=== PATIENT | female | born 1980 | race Caucasian/White ===

== ENCOUNTER 2019-04-21 10:37 | Emergency (ER) | payer BC, OTHER ==
[2019-04-21 10:44] VITALS: TEMP 98.1
[2019-04-21] MEDS ORDERED: SODIUM CHLORIDE 0.9% 1,000 ML IV STA (11:14)
[2019-04-21] MEDS ORDERED: ONDANSETRON 4 MG/2 ML VIAL IVP STA (11:14)
--- NOTE | 2019-04-21 11:19 | ED ---
Weakness HPI - General Chief complaint: Weakness Stated complaint: WEAKNESS Time Seen by Provider: 04/21/19 10:52 Source: patient, EMS Mode of arrival: EMS Limitations: no limitations - History of Present Illness Initial comments: Patient is a 39-year-old female presenting to the emergency Department with complaints of generalized weakness, nausea since this morning. Patient states this past weekend she did have a couple drinks for her birthday and did end up vomiting later that evening and was not feeling well the next day. Patient states later on on Saturday she was feeling better and most of the day yesterday was feeling better as well. She did finally did eat something for dinner last night. Patient states however she woke up this morning feeling generalized weakness and still nauseous. She denies having pain anywhere including no chest pain, shortness of breath, belly pain. She states she is on her period so is having some lower abdominal cramping. She did take some Motrin which has not helped with the cramping. Patient states her periods have been normal, she does not believe she is . Patient states she has had some abnormal reactions to alcohol in the past even just after 1 drink. Patient admits to cholecystectomy, no other abdominal surgeries. She has no other complaints at this time. Prior arrival to the ER, her vital signs are stable. - Related Data Home Medications Medication Instructions Recorded Confirmed No Known Home Medications 04/21/19 04/21/19 Allergies Allergy/AdvReac Type Severity Reaction Status Date / Time No Known Allergies Allergy Verified 04/21/19 12:19 Review of Systems ROS Statement: Those systems with pertinent positive or pertinent negative responses have been documented in the HPI. ROS Other: All systems not noted in ROS Statement are negative. Past Medical History Past Medical History: No Reported History History of Any Multi-Drug Resistant Organisms: None Reported Past Surgical History: Cholecystectomy Past Psychological History: No Psychological Hx Reported Smoking Status: Current some day smoker Past Alcohol Use History: None Reported, Occasional, Rare Past Drug Use History: Marijuana General Exam - General Exam Comments Initial Comments: GENERAL: Well-appearing, well-nourished and in no acute distress. HEAD: Atraumatic, normocephalic. EYES: Pupils equal round and reactive to light, extraocular movements intact, sclera anicteric, conjunctiva are normal. ENT: TMs normal, nares patent, oropharynx clear without exudates. Moist mucous me mbranes. NECK: Normal range of motion, supple without lymphadenopathy or JVD. LUNGS: Breath sounds clear to auscultation bilaterally and equal. No wheezes rales or rhonchi. HEART: Regular rate and rhythm without murmurs, rubs or gallops. ABDOMEN: Mild lower abdominal/ suprapubic discomfort. No sharp shooting pains. Soft, nontender, normoactive bowel sounds. No guarding, no rebound. No masses appreciated. : Deferred EXTREMITIES: Normal range of motion, no pitting or edema. No clubbing or cyanosis. NEUROLOGICAL: Cranial nerves II through XII grossly intact. Normal speech, normal gait. PSYCH: Normal mood, normal affect. SKIN: Warm, Dry, normal turgor, no rashes or lesions noted. Limitations: no limitations Course Vital Signs 04/21/19 10:38 Temperature 98.1 F Pulse Rate 66 Respiratory 16 Rate Blood Pressure 140/69 O2 Sat by Pulse 100 Oximetry EKG Findings - EKG Comments: EKG Findings:: Ventricular rate 62, CO interval 152, QTC 454. Normal sinus rhythm. No acute ST segment changes. Medical Decision Making - Medical Decision Making Patient is a 39-year-old female presenting with nausea and generalized weakness since this morning. Vitals are stable. Her exam is unremarkable except for some mild suprapubic tenderness however patient is on her period and is having cramping. Lab work is unremarkable, UA is normal, not . EKG shows no acute findings, troponin normal. Patient was given fluids and Zofran and does report some improvement in her symptoms. I discussed with patient that this could be viral in nature or a mild GI bug. We discuss continuing to increase her fluid intake and trial of foods. She is in agreement with this plan of care. She is stable for discharge. Return parameters were discussed with the patient she verbalized understanding. She'll follow up with her PCP. Case dis cussed with Dr. Carvalho. - Lab Data Result diagrams: 04/21/19 10:55 04/21/19 10:55 Lab Results 04/21/19 04/21/19 04/21/19 Range/Units 10:55 10:55 10:55 WBC 5.8 (3.8-10.6) k/uL RBC 4.55 (3.80-5.40) m/uL Hgb 13.7 (11.4-16.0) gm/dL Hct 42.7 (34.0-46.0) % MCV 93.8 (80.0-100.0) fL MCH 30.0 (25.0-35.0) pg MCHC 32.0 (31.0-37.0) g/dL RDW 12.7 (11.5-15.5) % Plt Count 242 (150-450) k/uL Neutrophils % 72 % Lymphocytes % 17 % Monocytes % 6 % Eosinophils % 3 % Basophils % 1 % Neutrophils # 4.2 (1.3-7.7) k/uL Lymphocytes # 1.0 (1.0-4.8) k/uL Monocytes # 0.4 (0-1.0) k/uL Eosinophils # 0.2 (0-0.7) k/uL Basophils # 0.0 (0-0.2) k/uL PT 9.8 (9.0-12.0) sec INR 0.9 (<1.2) APTT 23.9 (22.0-30.0) sec Sodium 139 (137-145) mmol/L Potassium 3.9 (3.5-5.1) mmol/L Chloride 110 H (98-107) mmol/L Carbon Dioxide 21 L (22-30) mmol/L Anion Gap 8 mmol/L BUN 17 (7-17) mg/dL Creatinine 0.79 (0.52-1.04) mg/dL Est GFR (CKD-EPI)AfAm >90 (>60 ml/min/1.73 sqM) Est GFR (CKD-EPI)NonAf >90 (>60 ml/min/1.73 sqM) Glucose 110 H (74-99) mg/dL Calcium 8.5 (8.4-10.2) mg/dL Total Bilirubin 0.3 (0.2-1.3) mg/dL AST 19 (14-36) U/L ALT 12 (4-34) U/L Alkaline Phosphatase 58 (38-126) U/L Troponin I (0.000-0.034) ng/mL Total Protein 6.5 (6.3-8.2) g/dL Albumin 3.8 (3.5-5.0) g/dL Urine Color Urine Appearance (Clear) Urine pH (5.0-8.0) Ur Specific [place] (1.001-1.035) Urine Protein (Negative) Urine Glucose (UA) (Negative) Urine Ketones (Negative) Urine Blood (Negative) Urine Nitrite (Negative) Urine Bilirubin (Negative) Urine Urobilinogen (<2.0) mg/dL Ur Leukocyte Esterase (Negative) Urine RBC (0-5) /hpf Urine WBC (0-5) /hpf Urine Mucus (None) /hpf Urine HCG, Qual (Not Detectd) 04/21/19 04/21/19 04/21/19 Range/Units 10:55 11:30 11:30 WBC (3.8-10.6) k/uL RBC (3.80-5.40) m/uL Hgb (11.4-16.0) gm/dL Hct (34.0-46.0) % MCV (80.0-100.0) fL MCH (25.0-35.0) pg MCHC (31.0-37.0) g/dL RDW (11.5-15.5) % Plt Count (150-450) k/uL Neutrophils % % Lymphocytes % % Monocytes % % Eosinophils % % Basophils % % Neutrophils # (1.3-7.7) k/uL Lymphocytes # (1.0-4.8) k/uL Monocytes # (0-1.0) k/uL Eosinophils # (0-0.7) k/uL Basophils # (0-0.2) k/uL PT (9.0-12.0) sec INR (<1.2) APTT (22.0-30.0) sec Sodium (137-145) mmol/L Potassium (3.5-5.1) mmol/L Chloride (98-107) mmol/L Carbon Dioxide (22-30) mmol/L Anion Gap mmol/L BUN (7-17) mg/dL Creatinine (0.52-1.04) mg/dL Est GFR (CKD-EPI)AfAm (>60 ml/min/1.73 sqM) Est GFR (CKD-EPI)NonAf (>60 ml/min/1.73 sqM) Glucose (74-99) mg/dL Calcium (8.4-10.2) mg/dL Total Bilirubin (0.2-1.3) mg/dL AST (14-36) U/L ALT (4-34) U/L Alkaline Phosphatase (38-126) U/L Troponin I <0.012 (0.000-0.034) ng/mL Total Protein (6.3-8.2) g/dL Albumin (3.5-5.0) g/dL Urine Color Yellow Urine Appearance Clear (Clear) Urine pH 5.5 (5.0-8.0) Ur Specific [place] 1.012 (1.001-1.035) Urine Protein Negative (Negative) Urine Glucose (UA) Negative (Negative) Urine Ketones Negative (Negative) Urine Blood Moderate H (Negative) Urine Nitrite Negative (Negative) Urine Bilirubin Negative (Negative) Urine Urobilinogen <2.0 (<2.0) mg/dL Ur Leukocyte Esterase Negative (Negative) Urine RBC 5 (0-5) /hpf Urine WBC <1 (0-5) /hpf Urine Mucus Rare H (None) /hpf Urine HCG, Qual Not Detected (Not Detectd) Disposition Clinical Impression: Nausea & vomiting, Generalized weakness, Viral illness Disposition: HOME SELF-CARE Condition: Stable Instructions (If sedation given, give patient instructions): Acute Nausea and Vomiting (ED) Additional Instructions: Please return to the Emergency Department if symptoms worsen or any other concerns. Continue to increase oral intake as well as foods. Continue with ibuprofen as needed for discomfort. Follow up with PCP. Is patient prescribed a controlled substance at d/c from ED?: No Referrals: Diana Arteaga MD [Primary Care Provider] - 1-2 days
[2019-04-21 11:26] LABS: Basophils % (A) 1 %; Eosinophils # (A) 0.2 k/uL (0-0.7); Eosinophils % (A) 3 %; HCT 42.7 % (34.0-46.0); HGB 13.7 gm/dL (11.4-16.0); Lymphocytes % (A) 17 %; MCV 93.8 fL (80.0-100.0); Mean Platelet Volume 7.8; Monocytes # (A) 0.4 k/uL (0-1.0); Monocytes % (A) 6 %; Neutrophils # (A) 4.2 k/uL (1.3-7.7); Neutrophils % (A) 72 %; Platelet Count 242 k/uL (150-450); RBC 4.55 m/uL (3.80-5.40); RDW 12.7 % (11.5-15.5); WBC 5.8 k/uL (3.8-10.6)
[2019-04-21 11:38] LABS: ALT 12 U/L (4-34); AST 19 U/L (14-36); African American GFR (CKD) >90 (>60 ml/min/1.73 sqM); Albumin 3.8 g/dL (3.5-5.0); Alkaline Phosphatase 58 U/L (38-126); Anion Gap 8 mmol/L; Blood Urea Nitrogen 17 mg/dL (7-17); Calcium 8.5 mg/dL (8.4-10.2); Carbon Dioxide 21 mmol/L (22-30); Chloride 110 mmol/L (98-107); Glucose 110 mg/dL (74-99); Non-African American GFR(CKD) >90 (>60 ml/min/1.73 sqM); Potassium 3.9 mmol/L (3.5-5.1); Sodium 139 mmol/L (137-145); Total Bilirubin 0.3 mg/dL (0.2-1.3); Total Protein 6.5 g/dL (6.3-8.2)
[2019-04-21 11:46] LABS: INR 0.9 (<1.2); Partial Thromboplastin Time 23.9 sec (22.0-30.0); Prothrombin Time 9.8 sec (9.0-12.0)
[2019-04-21 12:27] LABS: Appearance,Urine Clear (Clear); Bilirubin,Urine Negative (Negative); Blood,Urine Moderate (Negative); Color,Urine Yellow; Glucose,Urine (UA) Negative (Negative); Ketones,Urine Negative (Negative); Leukocyte Esterase,Urine Negative (Negative); Mucus,Urine Rare /hpf; Nitrite,Urine Negative (Negative); PH, Urine 5.5 (5.0-8.0); Protein,Urine Negative (Negative); RBC,Urine 5 /hpf (0-5); Specific Gravity,Urine 1.012 (1.001-1.035); Urobilinogen,Urine <2.0 mg/dL (<2.0); WBC,Urine <1 /hpf (0-5)
[2019-04-21] MEDS ORDERED: ONDANSETRON 4 MG ODT STARTER PACK 2 TAB BTL PO STA (12:40)
[2019-04-21 13:00] VITALS: BP 113/64; PULSE 57; RESP 18
== END 2019-04-21 13:02 | disposition home or self-care (01) ==
LOC: EC 10:37
DX: B34.9 Viral infection, unspecified (principal); F17.200 Nicotine dependence, unspecified, uncomplicated; Z90.49 Acquired absence of other specified parts of digestive tract
CPT/HCPCS: 36415; 93005; 80053; 84484; 85025; 85610; 85730; 81001; 81025; 99285; 96374; 96361; J2405; S0119

== ENCOUNTER 2019-12-27 08:32 | Emergency (ER) | payer OTHER ==
[2019-12-27] MEDS ORDERED: SODIUM CHLORIDE 0.9% 2,000 ML IV STA (08:52)
[2019-12-27] MEDS ORDERED: ONDANSETRON 4 MG/2 ML VIAL IVP STA (08:52)
[2019-12-27] MEDS ORDERED: KETOROLAC 15 MG/ML 1 ML VIAL IVP STA (08:52)
--- NOTE | 2019-12-27 08:55 | ED ---
General Adult HPI - General Chief complaint: Nausea/Vomiting/Diarrhea Stated complaint: Nausea,Vomiting,chills Time Seen by Provider: 12/27/19 08:39 Source: patient, RN notes reviewed Mode of arrival: wheelchair Limitations: no limitations - History of Present Illness Initial comments: 39-year-old female presents to the emergency room for a chief complaint of nausea vomiting diarrhea. Patient states that for the past 3-4 days she has had nausea vomiting diarrhea. States this started after she ate the last bowl out of a batch of potato soup. Patient states she has cramping abdominal pain that comes and goes, denies any persistent abdominal pain. Denies fevers or chills. She denies bloody or bilious vomiting. Denies bloody diarrhea. Patient states she states feels that does not seem to be getting better. Patient does have a history of cholecystectomy.Patient has no other complaints at this time including shortness of breath, chest pain, abdominal pain, headache, or visual changes. - Related Data Previous Rx's Medication Instructions Recorded Ondansetron [Zofran ODT] 4 mg PO Q8HR PRN #15 tab 12/27/19 Allergies Allergy/AdvReac Type Severity Reaction Status Date / Time No Known Allergies Allergy Verified 12/27/19 08:38 Review of Systems ROS Statement: Those systems with pertinent positive or pertinent negative responses have been documented in the HPI. ROS Other: All systems not noted in ROS Statement are negative. Past Medical History Past Medical History: No Reported History History of Any Multi-Drug Resistant Organisms: None Reported Past Surgical History: Cholecystectomy Past Psychological History: No Psychological Hx Reported Smoking Status: Never smoker Past Alcohol Use History: Occasional, Rare Past Drug Use History: Marijuana General Exam Limitations: no limitations General appearance: alert, in no apparent distress Head exam: Present: atraumatic, normocephalic, normal inspection Eye exam: Present: normal appearance, PERRL, EOMI. Absent: scleral icterus, conjunctival injection, periorbital swelling ENT exam: Present: normal exam, mucous membranes moist Neck exam: Present: normal inspection, full ROM. Absent: tenderness, meningismus Respiratory exam: Present: normal lung sounds bilaterally. Absent: respiratory distress, wheezes, rales, rhonchi, stridor Cardiovascular Exam: Present: regular rate, normal rhythm, normal heart sounds. Absent: systolic murmur, diastolic murmur, rubs, gallop, clicks GI/Abdominal exam: Present: soft, normal bowel sounds. Absent: distended, tenderness, guarding, rebound, rigid Neurological exam: Present: alert Course Vital Signs 12/27/19 12/27/19 12/27/19 08:35 09:38 10:00 Temperature 97.6 F Pulse Rate 81 65 Respiratory 16 18 18 Rate Blood Pressure 130/86 120/73 O2 Sat by Pulse 98 100 Oximetry Medical Decision Making - Medical Decision Making Patient is a 39-year-old female with nausea vomiting diarrhea 4 days. HPI and physical exam as documented. Abdomen is nontender. Patient does appear comfortable upon first examination given nausea. Return evaluation was performed. Patient does have evidence of dehydration with hemoconcentration. 3+ ketones in the urine. Patient was given 2 L of fluids. Minimal leukocytosis of 11.6 is likely related to vomiting. She was reevaluated after 2 L of fluids, Toradol, Zofran. She is denying any abdominal pain at this time and states her nausea is much improved. She does not have any abdominal tenderness whatsoever. I discussed risks versus benefits of CAT scan. At this time patient prefers to go home on supportive treatment. She does agree to return if she has any a bdominal pain or or fevers. She will otherwise follow-up with her doctor. I will also give her an outpatient stool culture. - Lab Data Result diagrams: 12/27/19 09:13 12/27/19 09:13 Lab Results 12/27/19 12/27/19 12/27/19 Range/Units 09:13 09:13 09:39 WBC 11.6 H (3.8-10.6) k/uL RBC 5.52 H (3.80-5.40) m/uL Hgb 17.3 H (11.4-16.0) gm/dL Hct 51.7 H (34.0-46.0) % MCV 93.6 (80.0-100.0) fL MCH 31.4 (25.0-35.0) pg MCHC 33.6 (31.0-37.0) g/dL RDW 12.4 (11.5-15.5) % Plt Count 276 (150-450) k/uL Neutrophils % 76 % Lymphocytes % 16 % Monocytes % 5 % Eosinophils % 2 % Basophils % 1 % Neutrophils # 8.8 H (1.3-7.7) k/uL Lymphocytes # 1.8 (1.0-4.8) k/uL Monocytes # 0.6 (0-1.0) k/uL Eosinophils # 0.2 (0-0.7) k/uL Basophils # 0.1 (0-0.2) k/uL Sodium 139 (137-145) mmol/L Potassium 4.5 (3.5-5.1) mmol/L Chloride 108 H (98-107) mmol/L Carbon Dioxide 20 L (22-30) mmol/L Anion Gap 11 mmol/L BUN 15 (7-17) mg/dL Creatinine 0.86 (0.52-1.04) mg/dL Est GFR (CKD-EPI)AfAm >90 (>60 ml/min/1.73 sqM) Est GFR (CKD-EPI)NonAf 85 (>60 ml/min/1.73 sqM) Glucose 100 H (74-99) mg/dL Calcium 9.9 (8.4-10.2) mg/dL Total Bilirubin 1.2 (0.2-1.3) mg/dL AST 25 (14-36) U/L ALT 15 (4-34) U/L Alkaline Phosphatase 61 (38-126) U/L Total Protein 8.4 H (6.3-8.2) g/dL Albumin 5.1 H (3.5-5.0) g/dL Amylase 51 (30-110) U/L Lipase 56 (23-300) U/L Urine Color Yellow Urine Appearance Clear (Clear) Urine pH 5.5 (5.0-8.0) Ur Specific [place] 1.029 (1.001-1.035) Urine Protein Trace H (Negative) Urine Glucose (UA) Negative (Negative) Urine Ketones 3+ H (Negative) Urine Blood Small H (Negative) Urine Nitrite Negative (Negative) Urine Bilirubin Negative (Negative) Urine Urobilinogen <2.0 (<2.0) mg/dL Ur Leukocyte Esterase Negative (Negative) Urine RBC 4 (0-5) /hpf Urine WBC 2 (0-5) /hpf Ur Squamous Epith Cells 5 H (0-4) /hpf Urine Bacteria Rare H (None) /hpf Urine Mucus Many H (None) /hpf Urine HCG, Qual (Not Detectd) 12/27/19 Range/Units 09:39 WBC (3.8-10.6) k/uL RBC (3.80-5.40) m/uL Hgb (11.4-16.0) gm/dL Hct (34.0-46.0) % MCV (80.0-100.0) fL MCH (25.0-35.0) pg MCHC (31.0-37.0) g/dL RDW (11.5-15.5) % Plt Count (150-450) k/uL Neutrophils % % Lymphocytes % % Monocytes % % Eosinophils % % Basophils % % Neutrophils # (1.3-7.7) k/uL Lymphocytes # (1.0-4.8) k/uL Monocytes # (0-1.0) k/uL Eosinophils # (0-0.7) k/uL Basophils # (0-0.2) k/uL Sodium (137-145) mmol/L Potassium (3.5-5.1) mmol/L Chloride (98-107) mmol/L Carbon Dioxide (22-30) mmol/L Anion Gap mmol/L BUN (7-17) mg/dL Creatinine (0.52-1.04) mg/dL Est GFR (CKD-EPI)AfAm (>60 ml/min/1.73 sqM) Est GFR (CKD-EPI)NonAf (>60 ml/min/1.73 sqM) Glucose (74-99) mg/dL Calcium (8.4-10.2) mg/dL Total Bilirubin (0.2-1.3) mg/dL AST (14-36) U/L ALT (4-34) U/L Alkaline Phosphatase (38-126) U/L Total Protein (6.3-8.2) g/dL Albumin (3.5-5.0) g/dL Amylase (30-110) U/L Lipase (23-300) U/L Urine Color Urine Appearance (Clear) Urine pH (5.0-8.0) Ur Specific [place] (1.001-1.035) Urine Protein (Negative) Urine Glucose (UA) (Negative) Urine Ketones (Negative) Urine Blood (Negative) Urine Nitrite (Negative) Urine Bilirubin (Negative) Urine Urobilinogen (<2.0) mg/dL Ur Leukocyte Esterase (Negative) Urine RBC (0-5) /hpf Urine WBC (0-5) /hpf Ur Squamous Epith Cells (0-4) /hpf Urine Bacteria (None) /hpf Urine Mucus (None) /hpf Urine HCG, Qual Not Detected (Not Detectd) Disposition Clinical Impression: Nausea, vomiting and diarrhea Disposition: HOME SELF-CARE Condition: Good Instructions (If sedation given, give patient instructions): Acute Nausea and Vomiting (ED), Acute Diarrhea (ED) Additional Instructions: Please take Zofran as needed for nausea. You were given a starter pack as well as written a prescription. You can take this up to every 8 hours. Drink plenty of fluids. If you have any abdominal pain or fevers return to the emergency room. Otherwise follow-up with your doctor in one to 2 days. Prescriptions: Ondansetron [Zofran ODT] 4 mg PO Q8HR PRN #15 tab PRN Reason: Nausea Is patient prescribed a controlled substance at d/c from ED?: No Referrals: Diana Arteaga MD [Primary Care Provider] - 1-2 days Time of Disposition: 10:34
[2019-12-27 09:14] LABS: Basophils # (A) 0.1 k/uL (0-0.2); Basophils % (A) 1 %; Eosinophils # (A) 0.2 k/uL (0-0.7); Eosinophils % (A) 2 %; HCT 51.7 % (34.0-46.0); HGB 17.3 gm/dL (11.4-16.0); Lymphocytes # (A) 1.8 k/uL (1.0-4.8); Lymphocytes % (A) 16 %; MCH 31.4 pg (25.0-35.0); MCHC 33.6 g/dL (31.0-37.0); MCV 93.6 fL (80.0-100.0); Mean Platelet Volume 7.1; Monocytes # (A) 0.6 k/uL (0-1.0); Monocytes % (A) 5 %; Neutrophils # (A) 8.8 k/uL (1.3-7.7); Neutrophils % (A) 76 %; Platelet Count 276 k/uL (150-450); RBC 5.52 m/uL (3.80-5.40); RDW 12.4 % (11.5-15.5); WBC 11.6 k/uL (3.8-10.6)
[2019-12-27 09:23] LABS: ALT 15 U/L (4-34); AST 25 U/L (14-36); African American GFR (CKD) >90 (>60 ml/min/1.73 sqM); Albumin 5.1 g/dL (3.5-5.0); Alkaline Phosphatase 61 U/L (38-126); Amylase 51 U/L (30-110); Anion Gap 11 mmol/L; Blood Urea Nitrogen 15 mg/dL (7-17); Calcium 9.9 mg/dL (8.4-10.2); Carbon Dioxide 20 mmol/L (22-30); Chloride 108 mmol/L (98-107); Glucose 100 mg/dL (74-99); Non-African American GFR(CKD) 85 (>60 ml/min/1.73 sqM); Potassium 4.5 mmol/L (3.5-5.1); Sodium 139 mmol/L (137-145); Total Bilirubin 1.2 mg/dL (0.2-1.3); Total Protein 8.4 g/dL (6.3-8.2)
[2019-12-27 09:49] LABS: Appearance,Urine Clear (Clear); Bacteria,Urine Rare /hpf; Bilirubin,Urine Negative (Negative); Blood,Urine Small (Negative); Color,Urine Yellow; Glucose,Urine (UA) Negative (Negative); Leukocyte Esterase,Urine Negative (Negative); Mucus,Urine Many /hpf; Nitrite,Urine Negative (Negative); PH, Urine 5.5 (5.0-8.0); Protein,Urine Trace (Negative); RBC,Urine 4 /hpf (0-5); Specific Gravity,Urine 1.029 (1.001-1.035); Squamous Epithelial Cell,Urine 5 /hpf (0-4); Urobilinogen,Urine <2.0 mg/dL (<2.0); WBC,Urine 2 /hpf (0-5)
[2019-12-27 10:11] LABS: Ketones,Urine 3+ (Negative)
[2019-12-27] MEDS ORDERED: ONDANSETRON 4 MG ODT STARTER PACK 2 TAB BTL PO STA (10:35)
[2019-12-27 10:59] VITALS: BP 118/69; PULSE 60; RESP 20; TEMP 97.8
== END 2019-12-27 10:58 | disposition home or self-care (01) ==
LOC: EC 08:32
DX: R11.2 Nausea with vomiting, unspecified (principal); R19.7 Diarrhea, unspecified; Z90.49 Acquired absence of other specified parts of digestive tract
CPT/HCPCS: 36415; 80053; 82150; 83690; 85025; 81001; 81025; 99284; 96374; 96375; 96361 ×2; J2405; J1885; S0119

== ENCOUNTER → 2020-05-19 | Outpatient (CLI) | payer OTHER ==
--- NOTE | 2020-05-20 13:41 | MM ---
Reason for exam: screening (asymptomatic). Baseline mammogram. Physical Findings: Nurse did not find any significant physical abnormalities on exam. MG 3D Screening Mammo W/Cad Bilateral CC and MLO view(s) were taken. The breast tissue is heterogeneously dense. This may lower the sensitivity of mammography. There is chronic nodularity in the right axilla. These results were verbally communicated with the patient and result sheet given to the patient on 05/19/20. ASSESSMENT: Incomplete: need additional imaging evaluation, BI-RAD 0 RECOMMENDATION: Ultrasound of the right breast.
--- NOTE | 2020-05-20 13:42 | USB ---
Reason for exam: additional evaluation requested from abnormal screening. Physical Findings: Breast exam preformed at baseline screening. US Breast Axilla RT Right breast axilla ultrasound demonstrates a 0.7cm and 0.5cm oval, benign lymph node at the axilla. These results were verbally communicated with the patient and result sheet given to the patient on 05/19/20. ASSESSMENT: Benign, BI-RAD 2 RECOMMENDATION: Return to routine screening mammogram schedule for both breasts.
== END | disposition home or self-care (01) ==
LOC: RADMAMWWP 14:13
PROVIDERS: ATTEND Family Medicine
DX: Z12.31 Encounter for screening mammogram for malignant neoplasm of breast (principal); R92.8 Other abnormal and inconclusive findings on diagnostic imaging of breast
CPT/HCPCS: 77063; 77067

== ENCOUNTER → 2020-06-20 | Outpatient (CLI) | payer OTHER ==
--- NOTE | 2020-06-20 12:41 | US ---
EXAMINATION TYPE: US pelvic complete DATE OF EXAM: 06/20/2020 COMPARISON: NONE CLINICAL HISTORY: 40-year-old female N92.1 Excessive and frequent menstruation with irregular heavy c ycles for 1 year, TECHNIQUE: TA. Transabdominal sonographic images of the pelvis were acquired. Date of LMP: 06/04/2020 FINDINGS: EXAM MEASUREMENTS: Uterus: 10.0 x 4.3 x 5.8 cm Endometrial Stripe: 1.2 cm Right Ovary: 2.4 x 2.3 x 2.6 cm for volume of 7.5 mL. Left Ovary: 2.5 x 2.4 x 1.6 cm for a volume of 5.0 mL. 1. Uterus: Anteverted wnl 2. 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 3. Right Ovary: follicles under 1cm, wnl 4. Left Ovary: follicles under 1cm, wnl 5. Bilateral Adnexa: wnl 6. Posterior cul-de-sac: wnl IMPRESSION: 1. 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 Consider female pelvic MRI to differentiate. 2. Normal follicular change in the ovaries. 3. Endometrial stripe measuring 1.2 cm thick.
== END | disposition home or self-care (01) ==
LOC: RADUSWWP 11:47
PROVIDERS: ATTEND Obstetrics & Gynecology
DX: N92.0 Excessive and frequent menstruation with regular cycle (principal)
CPT/HCPCS: 76856

== ENCOUNTER 2020-07-02 07:28 | Emergency (ER) | payer OTHER ==
[2020-07-02] MEDS ORDERED: SODIUM CHLORIDE 0.9% 1,000 ML IV STA (07:53)
[2020-07-02] MEDS ORDERED: MORPHINE SULFATE 2 MG/ML SYRINGE IVP STA (07:53)
[2020-07-02] MEDS ORDERED: ONDANSETRON 4 MG/2 ML VIAL IVP STA (07:53)
[2020-07-02] MEDS ORDERED: KETOROLAC 15 MG/ML 1 ML VIAL IVP STA (07:53)
--- NOTE | 2020-07-02 08:00 | ED ---
General Adult HPI - General Chief complaint: Nausea/Vomiting/Diarrhea Stated complaint: Abd Pain, Vomiting Time Seen by Provider: 07/02/20 07:35 Source: patient, RN notes reviewed, old records reviewed Mode of arrival: ambulatory Limitations: no limitations - History of Present Illness Initial comments: 40-year-old female presenting for evaluation of abdominal discomfort, nausea vomiting. Patient has had ongoing symptoms for the past one year. It is always associated with her menstrual cycle. She has followed with gynecology and had an outpatient ultrasound and lab work performed. She states that she has lower abdominal cramping as well as nausea vomiting. She states she has hot and cold flashes. Symptoms have been ongoing with this episode for approximately 24 hours. No fever. No cough or cold symptoms. - Related Data Home Medications Medication Instructions Recorded Confirmed No Known Home Medications 07/02/20 07/02/20 Allergies Allergy/AdvReac Type Severity Reaction Status Date / Time No Known Allergies Allergy Verified 07/02/20 07:51 Review of Systems ROS Statement: Those systems with pertinent positive or pertinent negative responses have been documented in the HPI. ROS Other: All systems not noted in ROS Statement are negative. Past Medical History Past Medical History: No Reported History History of Any Multi-Drug Resistant Organisms: None Reported Past Surgical History: Cholecystectomy Past Psychological History: No Psychological Hx Reported Smoking Status: Never smoker Past Alcohol Use History: None Reported Past Drug Use History: Marijuana General Exam Limitations: no limitations General appearance: alert, in no apparent distress Head exam: Present: atraumatic, normocephalic Eye exam: Present: normal appearance, PERRL ENT exam: Present: normal exam Neck exam: Present: normal inspection. Absent: tenderness Respiratory exam: Present: normal lung sounds bilaterally. Absent: respiratory distress, wheezes Cardiovascular Exam: Present: regular rate, normal rhythm GI/Abdominal exam: Present: soft, tenderness (Minimal generalized tenderness). Absent: distended, guarding, rebound Extremities exam: Present: normal inspection, normal capillary refill, pedal edema, calf tenderness Back exam: Present: normal inspection, full ROM Neurological exam: Present: alert, oriented X3, CN II-XII intact. Absent: motor sensory deficit Psychiatric exam: Present: normal affect, normal mood Skin exam: Present: warm, dry, intact. Absent: cyanosis, diaphoretic Course Vital Signs 07/02/20 07/02/20 07:35 08:58 Temperature 97.5 F L 98.7 F Pulse Rate 60 46 L Respiratory 18 16 Rate Blood Pressure 139/85 114/71 O2 Sat by Pulse 99 100 Oximetry - Reevaluation(s) Reevaluation #1: 07/02/20 09:06 On reevaluation feeling much better, symptoms resolved. Medical Decision Making - Medical Decision Making 40-year-old female with abdominal discomfort, nausea vomiting, associated with her menstrual cycle. Workup is initiated, IV fluids and pain medication administered. The patient has a CBC showing a mild leukocytosis of 11, otherwise normal laboratory testing. She does have trace blood in her urine but is currently on her menstrual cycle. She is feeling much better on reevaluation, no further vomiting. She has a referral to gynecology and has had workup initiated as an outpatient. Patient's given return parameters and will follow up both with her primary care physician and her protection analyst. - Lab Data Result diagrams: 07/02/20 07:58 07/02/20 07:58 Lab Results 07/02/20 07/02/20 07/02/20 Range/Units 07:58 07:58 07:58 WBC 11.0 H (3.8-10.6) k/uL RBC 4.69 (3.80-5.40) m/uL Hgb 15.1 (11.4-16.0) gm/dL Hct 44.1 (34.0-46.0) % MCV 94.0 (80.0-100.0) fL MCH 32.2 (25.0-35.0) pg MCHC 34.2 (31.0-37.0) g/dL RDW 12.6 (11.5-15.5) % Plt Count 271 (150-450) k/uL MPV 7.4 Neutrophils % 75 % Lymphocytes % 14 % Monocytes % 5 % Eosinophils % 4 % Basophils % 1 % Neutrophils # 8.2 H (1.3-7.7) k/uL Lymphocytes # 1.5 (1.0-4.8) k/uL Monocytes # 0.6 (0-1.0) k/uL Eosinophils # 0.5 (0-0.7) k/uL Basophils # 0.1 (0-0.2) k/uL Sodium (137-145) mmol/L Potassium (3.5-5.1) mmol/L Chloride (98-107) mmol/L Carbon Dioxide (22-30) mmol/L Anion Gap mmol/L BUN (7-17) mg/dL Creatinine (0.52-1.04) mg/dL Est GFR (CKD-EPI)AfAm (>60 ml/min/1.73 sqM) Est GFR (CKD-EPI)NonAf (>60 ml/min/1.73 sqM) Glucose (74-99) mg/dL Calcium (8.4-10.2) mg/dL Total Bilirubin (0.2-1.3) mg/dL AST (14-36) U/L ALT (4-34) U/L Alkaline Phosphatase (38-126) U/L Total Protein (6.3-8.2) g/dL Albumin (3.5-5.0) g/dL Amylase (30-110) U/L Lipase (23-300) U/L Urine Color Yellow Urine Appearance Clear (Clear) Urine pH 6.0 (5.0-8.0) Ur Specific [place] 1.031 (1.001-1.035) Urine Protein Trace H (Negative) Urine Glucose (UA) Negative (Negative) Urine Ketones Trace H (Negative) Urine Blood Moderate H (Negative) Urine Nitrite Negative (Negative) Urine Bilirubin Negative (Negative) Urine Urobilinogen <2.0 (<2.0) mg/dL Ur Leukocyte Esterase Trace H (Negative) Urine RBC 7 H (0-5) /hpf Urine WBC 3 (0-5) /hpf Ur Squamous Epith Cells 4 (0-4) /hpf Urine Mucus Occasional H (None) /hpf Urine HCG, Qual Not Detected (Not Detectd) 07/02/20 Range/Units 07:58 WBC (3.8-10.6) k/uL RBC (3.80-5.40) m/uL Hgb (11.4-16.0) gm/dL Hct (34.0-46.0) % MCV (80.0-100.0) fL MCH (25.0-35.0) pg MCHC (31.0-37.0) g/dL RDW (11.5-15.5) % Plt Count (150-450) k/uL MPV Neutrophils % % Lymphocytes % % Monocytes % % Eosinophils % % Basophils % % Neutrophils # (1.3-7.7) k/uL Lymphocytes # (1.0-4.8) k/uL Monocytes # (0-1.0) k/uL Eosinophils # (0-0.7) k/uL Basophils # (0-0.2) k/uL Sodium 139 (137-145) mmol/L Potassium 4.5 (3.5-5.1) mmol/L Chloride 107 (98-107) mmol/L Carbon Dioxide 27 (22-30) mmol/L Anion Gap 5 mmol/L BUN 13 (7-17) mg/dL Creatinine 0.82 (0.52-1.04) mg/dL Est GFR (CKD-EPI)AfAm >90 (>60 ml/min/1.73 sqM) Est GFR (CKD-EPI)NonAf 89 (>60 ml/min/1.73 sqM) Glucose 98 (74-99) mg/dL Calcium 9.4 (8.4-10.2) mg/dL Total Bilirubin 0.5 (0.2-1.3) mg/dL AST 19 (14-36) U/L ALT 9 (4-34) U/L Alkaline Phosphatase 49 (38-126) U/L Total Protein 6.9 (6.3-8.2) g/dL Albumin 4.2 (3.5-5.0) g/dL Amylase 54 (30-110) U/L Lipase 63 (23-300) U/L Urine Color Urine Appearance (Clear) Urine pH (5.0-8.0) Ur Specific [place] (1.001-1.035) Urine Protein (Negative) Urine Glucose (UA) (Negative) Urine Ketones (Negative) Urine Blood (Negative) Urine Nitrite (Negative) Urine Bilirubin (Negative) Urine Urobilinogen (<2.0) mg/dL Ur Leukocyte Esterase (Negative) Urine RBC (0-5) /hpf Urine WBC (0-5) /hpf Ur Squamous Epith Cells (0-4) /hpf Urine Mucus (None) /hpf Urine HCG, Qual (Not Detectd) Disposition Clinical Impression: Nausea & vomiting, Abdominal pain Disposition: HOME SELF-CARE Condition: Good Instructions (If sedation given, give patient instructions): Acute Nausea and Vomiting (ED), Abdominal Pain (ED) Is patient prescribed a controlled substance at d/c from ED?: No Referrals: Diana Arteaga MD [Primary Care Provider] - 1-2 days Fawad Davis DO [Doctor of Osteopathic Medicine] - 1-2 days Time of Disposition: 09:06
[2020-07-02 08:45] LABS: Basophils # (A) 0.1 k/uL (0-0.2); Basophils % (A) 1 %; Eosinophils # (A) 0.5 k/uL (0-0.7); Eosinophils % (A) 4 %; HCT 44.1 % (34.0-46.0); HGB 15.1 gm/dL (11.4-16.0); Lymphocytes # (A) 1.5 k/uL (1.0-4.8); Lymphocytes % (A) 14 %; MCH 32.2 pg (25.0-35.0); MCHC 34.2 g/dL (31.0-37.0); Mean Platelet Volume 7.4; Monocytes # (A) 0.6 k/uL (0-1.0); Monocytes % (A) 5 %; Neutrophils # (A) 8.2 k/uL (1.3-7.7); Neutrophils % (A) 75 %; Platelet Count 271 k/uL (150-450); RBC 4.69 m/uL (3.80-5.40); RDW 12.6 % (11.5-15.5)
[2020-07-02 08:51] LABS: ALT 9 U/L (4-34); AST 19 U/L (14-36); African American GFR (CKD) >90 (>60 ml/min/1.73 sqM); Albumin 4.2 g/dL (3.5-5.0); Alkaline Phosphatase 49 U/L (38-126); Amylase 54 U/L (30-110); Anion Gap 5 mmol/L; Appearance,Urine Clear (Clear); Bilirubin,Urine Negative (Negative); Blood Urea Nitrogen 13 mg/dL (7-17); Blood,Urine Moderate (Negative); Calcium 9.4 mg/dL (8.4-10.2); Carbon Dioxide 27 mmol/L (22-30); Chloride 107 mmol/L (98-107); Color,Urine Yellow; Glucose 98 mg/dL (74-99); Glucose,Urine (UA) Negative (Negative); Ketones,Urine Trace (Negative); Leukocyte Esterase,Urine Trace (Negative); Lipase 63 U/L (23-300); Mucus,Urine Occasional /hpf; Nitrite,Urine Negative (Negative); Non-African American GFR(CKD) 89 (>60 ml/min/1.73 sqM); Potassium 4.5 mmol/L (3.5-5.1); Protein,Urine Trace (Negative); RBC,Urine 7 /hpf (0-5); Sodium 139 mmol/L (137-145); Specific Gravity,Urine 1.031 (1.001-1.035); Squamous Epithelial Cell,Urine 4 /hpf (0-4); Total Bilirubin 0.5 mg/dL (0.2-1.3); Total Protein 6.9 g/dL (6.3-8.2); Urobilinogen,Urine <2.0 mg/dL (<2.0); WBC,Urine 3 /hpf (0-5)
[2020-07-02 08:59] VITALS: BP 114/71; PULSE 46; RESP 16; TEMP 98.7
== END 2020-07-02 09:13 | disposition home or self-care (01) ==
LOC: EC 07:28
DX: R11.2 Nausea with vomiting, unspecified (principal); R10.30 Lower abdominal pain, unspecified; R19.7 Diarrhea, unspecified; F12.90 Cannabis use, unspecified, uncomplicated
CPT/HCPCS: 36415; 80053; 82150; 83690; 85025; 81001; 81025; 99284; 96374; 96375 ×2; 96361; J2405; J2270; J1885

== ENCOUNTER 2023-12-02 00:14 | Emergency (ER) | payer OTHER ==
[2023-12-02 00:22] VITALS: TEMP 97.4
[2023-12-02] MEDS: MAGNESIUM SULFATE-D5W PMX 1 GM in DEXTROSE/WATER 1 100ML.BAG IVPB ONE (01:39)
--- NOTE | 2023-12-02 02:25 | XR ---
EXAM: XR Chest, 2 Views CLINICAL HISTORY: ITS.REASON XR Reason: Cough/pain TECHNIQUE: Frontal and lateral views of the chest. COMPARISON: No relevant prior studies available. FINDINGS: Lungs: Unremarkable. No consolidation. Pleural space: Unremarkable. No pneumothorax. Heart: Unremarkable. No cardiomegaly. Mediastinum: Unremarkable. Normal mediastinal contour. Bones/joints: Unremarkable. No acute fracture. IMPRESSION: Normal chest x-rays.
--- NOTE | 2023-12-02 02:54 | ED ---
SOB HPI - General Chief Complaint: Shortness of Breath Stated Complaint: ITALIA Time Seen by Provider: 12/02/23 00:26 Source: patient Mode of arrival: EMS Limitations: no limitations - History of Present Illness Initial Comments: 43-year-old female with past medical history of asthma who presents emergency department with asthma exacerbation. States her breathing has been getting worse for the past 2 days. She has been using her nebulizer with albuterol without any improvement in her symptoms. She does feel as if the humidity does exacerbate her symptoms. She denies any chest pain. No history of cardiac disease. No lower extremity swelling. No history of DVT or PE. No concern for . EMS did provide the patient with a DuoNeb breathing treatment and 125 Solu-Medrol as she was considerably wheezy. Patient does arrive to the hospital and feels improved. She has never been hospitalized for her breathing. No other alleviating, precipitating modifying factors - Related Data Previous Rx's Medication Instructions Recorded Albuterol Inhaler [Ventolin Hfa 2 puff INHALATION QID #8 gm 12/02/23 Inhaler] Albuterol Nebulized [Ventolin 2.5 mg INHALATION Q4H PRN #75 ml 12/02/23 Nebulized] predniSONE [Deltasone] 20 mg PO BID #10 tab 12/02/23 Allergies Allergy/AdvReac Type Severity Reaction Status Date / Time No Known Allergies Allergy Verified 12/02/23 00:18 Review of Systems ROS Statement: Those systems with pertinent positive or pertinent negative responses have been documented in the HPI. ROS Other: All systems not noted in ROS Statement are negative. Past Medical History Past Medical History: Asthma History of Any Multi-Drug Resistant Organisms: None Reported Past Surgical History: Cholecystectomy Past Psychological History: No Psychological Hx Reported Smoking Status: Vaper Past Alcohol Use History: None Reported Past Drug Use History: None Reported General Exam Limitations: no limitations General appearance: alert, in no apparent distress Head exam: Present: atraumatic, normocephalic, normal inspection Eye exam: Present: normal appearance, PERRL, EOMI. Absent: scleral icterus, conjunctival injection, periorbital swelling ENT exam: Present: normal exam, mucous membranes moist Neck exam: Present: normal inspection. Absent: tenderness, meningismus, lymphadenopathy Respiratory exam: Present: wheezes, accessory muscle use, other (Patient has tachypnea). Absent: respiratory distress, rales, rhonchi, stridor Cardiovascular Exam: Present: regular rate, normal rhythm, normal heart sounds. Absent: systolic murmur, diastolic murmur, rubs, gallop, clicks GI/Abdominal exam: Present: soft, normal bowel sounds. Absent: distended, tenderness, guarding, rebound, rigid Extremities exam: Present: normal inspection, full ROM, normal capillary refill. Absent: tenderness, pedal edema, joint swelling, calf tenderness Back exam: Present: normal inspection Neurological exam: Present: alert, oriented X3, CN II-XII intact Psychiatric exam: Present: normal affect, normal mood Skin exam: Present: warm, dry, intact, normal color. Absent: rash Course Vital Signs 12/02/23 12/02/23 12/02/23 00:18 02:58 03:08 Temperature 97.4 F L Pulse Rate 92 82 84 Respiratory 45 H Rate Blood Pressure 158/82 O2 Sat by Pulse 96 Oximetry 12/02/23 03:20 Temperature Pulse Rate 88 Respiratory 22 Rate Blood Pressure 153/74 O2 Sat by Pulse 97 Oximetry Medical Decision Making - Medical Decision Making Was pt. sent in by a medical professional or institution (, PA, FILENET DEVELOPER, urgent care, hospital, or usp...) When possible be specific @ -No Did you speak to anyone other than the patient for history (EMS, parent, family, police, friend...)? What history was obtained from this source @ -Spoke with EMS for history Did you review nursing and triage notes (agree or disagree)? Why? @ -I reviewed and agree with nursing and triage notes Were old charts reviewed (outside hosp., previous admission, EMS record, old EKG, old radiological studies, urgent care reports/EKG's, usp records)? Report findings @ -No old charts were reviewed Differential Diagnosis (chest pain, altered mental status, abdominal pain women, abdominal pain men, vaginal bleeding, weakness, fever, dyspnea, syncope, headache, dizziness, GI bleed, back pain, seizure, CVA, palpatations, mental health, musculoskeletal)? @ -Differential Dyspnea: Coronary syndrome, arrhythmia, tamponade, asthma, COPD, pulmonary embolism, pneumonia, pneumothorax, pulmonary effusion, anaphylaxis, diabetic ketoacidosis, flailed chest, pulmonary contusion, diaphragmatic rupture, anemia, neuromuscular, this is not meant to be an all-inclusive list. EKG interpreted by me (3pts min.). @ -Not done X-rays interpreted by me (1pt min.). @ -Yes and demonstrates no acute process CT interpreted by me (1pt min.). @ -None done U/S interpreted by me (1pt. min.). @ -None done What testing was considered but not performed or refused? (CT, X-rays, U/S, labs)? Why? @ -None What meds were considered but not given or refused? Why? @ -None Did you discuss the management of the patient with other professionals (professionals i.e. , PA, FILENET DEVELOPER, lab, RT, psych nurse, social insurance analyst, bonding agent, teacher, corrections officer, home health care case manager)? Give summary @ -No Was smoking cessation discussed for >3mins.? @ -No Was critical care preformed (if so, how long)? @ -No Were there social determinants of health that impacted care today? How? (Homelessness, low income, unemployed, alcoholism, drug addiction, transportation, low edu. Level, literacy, decrease access to med. care, detention, rehab)? @ -No Was there de-escalation of care discussed even if they declined (Discuss DNR or withdrawal of care, Hospice)? DNR status @ -No What co-morbidities impacted this encounter? (DM, HTN, Smoking, COPD, CAD, Cancer, CVA, ARF, Chemo, Hep., AIDS, mental health diagnosis, sleep apnea, morbid obesity)? @ -Asthma Was patient admitted / discharged? Hospital course, mention meds given and route, prescriptions, significant lab abnormalities, going to OR and other pertinent info. @ -Upon arrival patient seen and evaluated in room 30. Thorough history and physical exam was performed. IV access was established by EMS. I did give her 1 g of magnesium. She was given another DuoNeb breathing treatment. Chest x- ray was performed. Patient had a viral swab completed. Results are discussed with patient. She states that she feels markedly improved at this time. Patient is agreeable to being discharged home. She will be placed on steroids for the next 5 days. Instructed to use her nebulizer every 4 hours. Return for any new or worsening symptoms. Patient was agreeable with plan she was discharged in stable condition Undiagnosed new problem with uncertain prognosis? @ -No Drug Therapy requiring intensive monitoring for toxicity (Heparin, Nitro, Insulin, Cardizem)? @ -No Were any procedures done? @ -No Diagnosis/symptom? @ -Acute respiratory insufficiency, acute asthma exacerbation Acute, or Chronic, or Acute on Chronic? @ -Acute Uncomplicated (without systemic symptoms) or Complicated (systemic symptoms)? @ -Complicated Side effects of treatment? @ -No Exacerbation, Progression, or Severe Exacerbation? @ -Yes Poses a threat to life or bodily function? How? (Chest pain, [place], [place], pneumonia, PE, COPD, DKA, ARF, appy, cholecystitis, CVA, Diverticulitis, Homicidal, Suicidal, threat to staff... and all critical care pts) @ -No - Lab Data Lab Results 12/02/23 Range/Units 01:46 Influenza Type A (PCR) Not Detected (Not Detectd) Influenza Type B (PCR) Not Detected (Not Detectd) RSV (PCR) Not Detected (Not Detectd) SARS-CoV-2 (PCR) Not Detected (Not Detectd) Disposition Clinical Impression: Asthma exacerbation Disposition: HOME SELF-CARE Condition: Stable Instructions (If sedation given, give patient instructions): Asthma (ED) Additional Instructions: Please a start the steroids tomorrow. Use your inhaler or nebulizer every 4 hours. Follow-up with your doctor and return for any new or worsening symptoms Prescriptions: predniSONE [Deltasone] 20 mg PO BID #10 tab Albuterol Inhaler [Ventolin Hfa Inhaler] 2 puff INHALATION QID #8 gm Albuterol Nebulized [Ventolin Nebulized] 2.5 mg INHALATION Q4H PRN #75 ml PRN Reason: difficulty in breathing Is patient prescribed a controlled substance at d/c from ED?: No Referrals: Diana Arteaga MD [Primary Care Provider] - 1-2 days Time of Disposition: 03:00
[2023-12-02] MEDS: IPRATROPIUM-ALBUTEROL 3 ML NEB INHALATION STA (02:56)
[2023-12-02 03:32] VITALS: BP 153/74; PULSE 88; RESP 22
== END 2023-12-02 03:20 | disposition home or self-care (01) ==
LOC: EC 00:14
DX: R06.00 Dyspnea, unspecified
CPT/HCPCS: 71046; 87636; 94640; 96365; 99285

== ENCOUNTER 2023-12-17 06:23 | Emergency (ER) | payer OTHER ==
[2023-12-17 06:28] VITALS: RESP 36; TEMP 97.4
--- NOTE | 2023-12-17 06:40 | ED ---
SOB HPI - General Chief Complaint: Shortness of Breath Stated Complaint: ITALIA Time Seen by Provider: 12/17/23 06:29 Source: patient, RN notes reviewed Mode of arrival: wheelchair Limitations: no limitations - History of Present Illness Initial Comments: This is a 43-year-old female who presents to the emergency department for shortness of breath. Patient has a history of asthma and states that she feels like she is having another exacerbation. She was here for this a couple of weeks ago and attributed it to the humidity. States that she had been doing great since then up until yesterday. Yesterday she went to the [employer] festival and states that there was a lot of dust and dirt, which she believes triggered another asthma exacerbation. States that this feels the same as prior asthma exacerbations. She did use 2 albuterol breathing treatments without much improvement in symptoms. MD Complaint: shortness of breath, cough - Related Data Previous Rx's Medication Instructions Recorded Albuterol Inhaler [Ventolin Hfa 2 puff INHALATION QID #8 gm 12/02/23 Inhaler] Albuterol Nebulized [Ventolin 2.5 mg INHALATION Q4H PRN #75 ml 12/02/23 Nebulized] predniSONE [Deltasone] 20 mg PO BID #10 tab 12/02/23 Ipratropium-Albuterol Nebulize 3 ml INHALATION Q4-6H PRN #90 ml 12/17/23 [Duoneb 0.5 mg-3 mg/3 ml Soln] predniSONE 50 mg PO DAILY 5 Days #5 tab 12/17/23 Allergies Allergy/AdvReac Type Severity Reaction Status Date / Time No Known Allergies Allergy Verified 12/02/23 00:18 Review of Systems ROS Statement: Those systems with pertinent positive or pertinent negative responses have been documented in the HPI. ROS Other: All systems not noted in ROS Statement are negative. Past Medical History Past Medical History: Asthma History of Any Multi-Drug Resistant Organisms: None Reported Past Surgical History: Cholecystectomy Past Psychological History: No Psychological Hx Reported Smoking Status: Vaper Past Alcohol Use History: None Reported Past Drug Use History: None Reported General Exam Limitations: no limitations General appearance: alert, in no apparent distress Head exam: Present: atraumatic, normocephalic, normal inspection Respiratory exam: Present: wheezes, decreased breath sounds, prolonged expiratory Cardiovascular Exam: Present: regular rate, normal rhythm, normal heart sounds. Absent: systolic murmur, diastolic murmur, rubs, gallop, clicks Neurological exam: Present: alert, oriented X3, CN II-XII intact Psychiatric exam: Present: normal affect, normal mood Skin exam: Present: warm, dry, intact, normal color. Absent: rash Course Vital Signs 12/17/23 12/17/23 12/17/23 06:24 07:05 07:18 Temperature 97.4 F L Pulse Rate 75 90 82 Respiratory 36 H Rate Blood Pressure 128/65 O2 Sat by Pulse 95 Oximetry 12/17/23 12/17/23 08:50 09:09 Temperature Pulse Rate 88 86 Respiratory Rate Blood Pressure O2 Sat by Pulse Oximetry Medical Decision Making - Medical Decision Making This is a 43 year old female who presents to the emergency department for shortness of breath. Was pt. sent in by a medical professional or institution? @ -No Did you speak to anyone other than the patient for history? @ -No Did you review nursing and triage notes? @ -Yes, and I agree, it is accurate with regards to the patient's symptoms. Were old charts reviewed? @ -No Differential Diagnosis? @ -Differential Dyspnea: Coronary syndrome, arrhythmia, tamponade, asthma, COPD, pulmonary embolism, pneumonia, pneumothorax, pulmonary effusion, anaphylaxis, diabetic ketoacidosis, flailed chest, pulmonary contusion, diaphragmatic rupture, anemia, neuromuscular, this is not meant to be an all-inclusive list. EKG interpreted by me (3pts min.)? @ -Not obtained X-rays interpreted by me (1pt min.)? @ -Chest x-ray obtained, my interpretation identifies no localized consolidations or infiltrates. CT interpreted by me (1pt min.)? @ -Not obtained U/S interpreted by me (1pt. min.)? @ -Not obtained What testing was considered but not performed? (CT, X-rays, U/S, labs)? Why? @ -None What meds were considered but not given? Why? @ -None Did you discuss the management of the patient with other professionals? @ -No Did you reconcile home meds? @ -No Was smoking cessation discussed for >3mins.? @ -I discussed smoking cessation for greater than 3 minutes. The risk of smoking were discussed with the patient including but not limited to risks of cancer, stroke, coronary artery disease and COPD. Also discussed with patient were multiple methods of quitting smoking. Lastly we discussed the financial cost of smoking. Was critical care preformed (if so, how long)? @ -No Were there social determinants of health that impacted care today? How? (Homelessness, low income, unemployed, alcoholism, drug addiction, transportation, low edu. Level, literacy, decrease access to med. care, snf, rehab)? @ -No Was there de-escalation of care discussed even if they declined? (Discuss DNR or withdrawal of care, Hospice)? @ -No What co-morbidities impacted this encounter? (DM, HTN, Smoking, COPD, CAD, Cancer, CVA, Hep., AIDS, mental health diagnosis, sleep apnea, morbid obesity)? @ -Asthma, smoking Was patient admitted / discharged? @ -Discharged. Chest x-ray obtained revealing no acute process. Patient was experiencing an asthma exacerbation due to exposure to large amount of dirt and dust at the [employer] festival yesterday. She had significant improvement with Solu-Medrol, terbutaline, 2 DuoNeb breathing treatments. Prescription for 5-day course of prednisone and DuoNeb breathing treatments prescribed for further management of asthma exacerbation. Advised close follow-up with her PCP. Patient discharged home in stable condition. Case discussed with ED attending, Dr. Monterroso. Return precautions reviewed in depth, the patient is instructed to return to the emergency department with any new, worsening, or concerning symptoms. Patient verbalized understanding. Undiagnosed new problem with uncertain prognosis? @ -None Drug Therapy requiring intensive monitoring for toxicity (Heparin, Nitro, Insulin, Cardizem)? @ -None Were any procedures done? @ -None Diagnosis/symptom? @ -Asthma exacerbation Acute, or Chronic, or Acute on Chronic? @ -Acute on chronic Uncomplicated (without systemic symptoms) or Complicated (systemic symptoms)? @ -Uncomplicated Side effects of treatment? @ -None Exacerbation, Progression, or Severe Exacerbation] @ -Exacerbation Poses a threat to life or bodily function? @ -No - Radiology Data Radiology results: report reviewed, image reviewed Disposition Clinical Impression: Asthma exacerbation Disposition: HOME SELF-CARE Instructions (If sedation given, give patient instructions): Asthma (ED) Additional Instructions: Return to the emergency department with any new, worsening, or concerning symptoms. Take the prednisone daily for 5 days. You can try using the DuoNeb breathing treatments in place of the albuterol nebulizer treatments to see if they are more effective. Follow up with your primary care provider in 1-2 days. Prescriptions: Ipratropium-Albuterol Nebulize [Duoneb 0.5 mg-3 mg/3 ml Soln] 3 ml INHALATION Q4-6H PRN #90 ml PRN Reason: Shortness Of Breath predniSONE 50 mg PO DAILY 5 Days #5 tab Is patient prescribed a controlled substance at d/c from ED?: No Referrals: Diana Arteaga MD [Primary Care Provider] - 1-2 days Time of Disposition: 08:03
[2023-12-17] MEDS: TERBUTALINE 1 MG/ML VIAL SQ STA (06:41)
[2023-12-17] MEDS: methylPREDNISolone SOD SUCCI 125 MG/2 ML VIAL IM ONE (06:46)
[2023-12-17] MEDS: IPRATROPIUM-ALBUTEROL 3 ML NEB INHALATION STA ×2 (07:09→08:50)
--- NOTE | 2023-12-17 07:51 | XR ---
EXAMINATION TYPE: XR chest 2V DATE OF EXAM: 12/17/2023 COMPARISON: 12/02/2023 HISTORY: Chest pain TECHNIQUE: Frontal and lateral views of the chest are obtained. FINDINGS: There is no focal air space opacity. No evidence for pneumothorax. No pleural effusion. The cardiac silhouette size is within normal limits. The osseous structures are grossly intact. IMPRESSION: 1. No acute cardiopulmonary process. [facility], , 12/17/2023 7:49 AM
[2023-12-17 09:34] VITALS: BP 118/70; PULSE 80
== END 2023-12-17 09:36 | disposition home or self-care (01) ==
LOC: EC 06:23
CPT/HCPCS: 71046; 94640; 96372; 99285

== ENCOUNTER 2024-08-28 10:39 | Emergency (ER) | payer OTHER, BC ==
--- NOTE | 2024-08-28 11:01 | ED ---
General Adult HPI - General Source: patient, RN notes reviewed Mode of arrival: ambulatory Limitations: no limitations <Bertha Holden - Last Filed: 08/28/24 11:00> <Bennett Monterroso - Last Filed: 08/28/24 14:42> - General Chief complaint: Nausea/Vomiting/Diarrhea Stated complaint: N/V/D Time Seen by Provider: 08/28/24 10:50 - History of Present Illness Initial comments: Quick [id number] female presents emergency room with complaints of nausea, vomiting, epigastric abdominal pain over the past 3 days. She states that the pain is most severe in the morning. Denies hematemesis, diarrhea, constipation. Previous cholecystectomy. (Bertha Holden) This is a 44-year-old female who presents to the emergency department complaining of having nausea vomiting and diarrhea over the last 3 days. Patient states she has a little upper abdominal cramping but after she vomits it goes away. Patient states she has a little sore from vomiting the last 3 days. Patient denies any other abdominal pain. Patient denies any back pain. Patient denies any dysuria hematuria urinary frequency. Patient denies any blood in the stool or emesis. (Bennett Monterroso) - Related Data Previous Rx's Medication Instructions Recorded Albuterol Inhaler [Ventolin Hfa 2 puff INHALATION QID #8 gm 12/02/23 Inhaler] Albuterol Nebulized [Ventolin 2.5 mg INHALATION Q4H PRN #75 ml 12/02/23 Nebulized] predniSONE [Deltasone] 20 mg PO BID #10 tab 12/02/23 Ipratropium-Albuterol Nebulize 3 ml INHALATION Q4-6H PRN #90 ml 12/17/23 [Duoneb 0.5 mg-3 mg/3 ml Soln] predniSONE 50 mg PO DAILY 5 Days #5 tab 12/17/23 Allergies Allergy/AdvReac Type Severity Reaction Status Date / Time No Known Allergies Allergy Verified 08/28/24 10:50 Review of Systems ROS Other: All systems not noted in ROS Statement are negative. <Bertha Holden - Last Filed: 08/28/24 11:00> ROS Other: All systems not noted in ROS Statement are negative. <Bennett Monterroso - Last Filed: 08/28/24 14:42> ROS Statement: Those systems with pertinent positive or pertinent negative responses have been documented in the HPI. Past Medical History Past Medical History: Asthma History of Any Multi-Drug Resistant Organisms: None Reported Past Surgical History: Cholecystectomy Past Psychological History: No Psychological Hx Reported Smoking Status: Vaper Past Alcohol Use History: None Reported Past Drug Use History: Marijuana <Bertha Holden - Last Filed: 08/28/24 11:00> General Exam Limitations: no limitations <SaylindaBertha - Last Filed: 08/28/24 11:00> <Bennett Monterroso - Last Filed: 08/28/24 14:42> - General Exam Comments Initial Comments: Visual Physical Exam Vital signs reviewed General: Well-appearing, nontoxic, no acute distress. Head: Normocephalic, atraumatic Eyes: PERRLA, EOMI ENT: Airway patent Chest: Nonlabored breathing Skin: No visual rash, normal skin tone Neuro: Alert and oriented 3 Musculoskeletal: No gross abnormalities (Alessiaelelinda,Bertha) GENERAL: Patient is well-developed and well-nourished. Patient is nontoxic and well-h ydrated and is in mild distress. ENT: Neck is soft and supple. No significant lymphadenopathy is noted. Oropharynx is clear. Moist mucous membranes. Neck has full range of motion without eliciting any pain. EYES: The sclera were anicteric and conjunctiva were pink and moist. Extraocular mov ements were intact and pupils were equal round and reactive to light. Eyelids were unremarkable. PULMONARY: Unlabored respirations. Good breath sounds bilaterally. No audible rales rhonchi or wheezing was noted. CARDIOVASCULAR: There is a regular rate and rhythm without any murmurs gallops or rubs. ABDOMEN: Soft and nontender with normal bowel sounds. SKIN: Skin is clear with no lesions or rashes and otherwise unremarkable. NEUROLOGIC: Patient is alert and oriented x3. Cranial nerves II through XII are grossly intact. Motor and sensory are also intact. Normal speech, volume and content. Symmetrical smile. MUSCULOSKELETAL: Normal extremities with adequate strength and full range of motion. LYMPHATICS: No significant lymphadenopathy is noted PSYCHIATRIC: Normal psychiatric evaluation. (Bennett Monterroso) Course Vital Signs 08/28/24 10:48 Temperature 97.4 F L Pulse Rate 60 Respiratory 20 Rate Blood Pressure 130/63 O2 Sat by Pulse 97 Oximetry Medical Decision Making <Bertha Holden - Last Filed: 08/28/24 11:00> - Lab Data Result diagrams: 08/28/24 11:31 08/28/24 11:31 <Bennett Monterroso - Last Filed: 08/28/24 14:42> - Medical Decision Making I completed the quick note portion of this chart signed Bertha Holden PA-C (Bertha Holden) Was pt. sent in by a medical professional or institution (JONATHAN Landaverde, INDUSTRIAL TRAINER, urgent care, hospital, or care home...) When possible be specific @ -No Did you speak to anyone other than the patient for history (EMS, parent, family, police, friend...)? What history was obtained from this source @ -No Did you review nursing and triage notes (agree or disagree)? Why? @ -I reviewed and agree with nursing and triage notes Were old charts reviewed (outside hosp., previous admission, EMS record, old EKG, old radiological studies, urgent care reports/EKG's, care home records)? Report findings @ -No old charts were reviewed Differential Diagnosis? @ -Differential Abdominal Pain Women: Appendicitis, Cholecystitis, diverticulosis, ischemic bowel, pancreatitis, hepatitis, UTI, gastroenteritis, AAA, incarcerated hernia, bowel obstruction, constipation, inflammatory bowel, hepatitis, peptic ulcer disease, splenic infarction, perforated viscus, vulvitis, ovarian torsion, PID, kidney stone, placenta abruption, this is not meant to be an all-inclusive list EKG interpreted by me (3pts min.). @ -As above X-rays interpreted by me (1pt min.). @ -None done CT interpreted by me (1pt min.). @ -None done U/S interpreted by me (1pt. min.). @ -Ultrasound showed no acute abnormality with the gallbladder What testing was considered but not performed or refused? (CT, X-rays, U/S, labs )? Why? @ -None What meds were considered but not given or refused? Why? @ -None Did you discuss the management of the patient with other professionals (professionals i.e. JONATHAN Landaverde, INDUSTRIAL TRAINER, lab, RT, psych nurse, social media marketing specialist, trim die maker, teacher, examining officer, director of casework department)? Give summary @ -No Was smoking cessation discussed for >3mins.? @ -No Was critical care preformed (if so, how long)? @ -No Were there social determinants of health that impacted care today? How? (Homelessness, low income, unemployed, alcoholism, drug addiction, transportation, low edu. Level, literacy, decrease access to med. care, long term, rehab)? @ -No Was there de-escalation of care discussed even if they declined (Discuss DNR or withdrawal of care, Hospice)? DNR status @ -No What co-morbidities impacted this encounter? (DM, HTN, Smoking, COPD, CAD, Cancer, CVA, ARF, Chemo, Hep., AIDS, mental health diagnosis, sleep apnea, morbid obesity)? @ -None Was patient admitted / discharged? Hospital course, mention meds given and route, prescriptions, significant lab abnormalities, going to OR and other pertinent info. @ -Patient's lab work came back relatively normal range. Patient received a liter and a half of fluid Zofran and Lomotil. While in the emergency department patient had no longer had any vomiting or diarrhea. Patient was feeling considerably better patient be discharged home with Zofran Undiagnosed new problem with uncertain prognosis? @ -No Drug Therapy requiring intensive monitoring for toxicity (Heparin, Nitro, Insulin, Cardizem)? @ -No Were any procedures done? @ -No Diagnosis/symptom? @ -Gastroenteritis Acute, or Chronic, or Acute on Chronic? @ -Acute Uncomplicated (without systemic symptoms) or Complicated (systemic symptoms)? @ -Complicated Side effects of treatment? @ -No Exacerbation, Progression, or Severe Exacerbation? @ -No Poses a threat to life or bodily function? How? (Chest pain, [place], [place], pneumonia, PE, COPD, DKA, ARF, appy, cholecystitis, CVA, Diverticulitis, Homicidal, Suicid al, threat to staff... and all critical care pts) @ -No (Bennett Monterroso) - Lab Data Lab Results 08/28/24 08/28/24 08/28/24 Range/Units 11:31 11:31 13:56 WBC 7.49 (4.50-10.00) 10*3/uL RBC 4.84 (4.10-5.20) 10*6/uL Hgb 14.5 (12.0-15.0) g/dL Hct 41.4 (37.2-46.3) % MCV 85.5 (80.0-97.0) fL MCH 30.0 (27.0-32.0) pg MCHC 35.0 (32.0-37.0) g/dL Plt Count 313 (140-440) 10*3/uL MPV 10.0 (9.5-12.2) fL Immature Gran % (Auto) 0.3 % Neutrophils % 69.8 % Lymphocytes % 18.6 % Monocytes % 7.1 % Eosinophils % 3.5 % Basophils % 0.7 % Immature Gran # 0.02 (0.00-0.04) 10*3/uL Neutrophils # 5.24 (1.80-7.70) 10*3/uL Lymphocytes # 1.39 (0.90-5.00) 10*3/uL Monocytes # 0.53 (0.20-1.00) 10*3/uL Eosinophils # 0.26 (0.04-0.35) 10*3/uL Basophils # 0.05 (0.00-0.10) 10*3/uL Sodium 137 (137-145) mmol/L Potassium 3.7 (3.5-5.1) mmol/L Chloride 106 (98-107) mmol/L Carbon Dioxide 19 L (22-30) mmol/L Anion Gap 12 mmol/L BUN 10 (7-17) mg/dL Creatinine 0.71 (0.52-1.04) mg/dL Est GFR (CKD-EPI)AfAm >90 (>60 ml/min/1.73 sqM) Est GFR (CKD-EPI)NonAf >90 (>60 ml/min/1.73 sqM) Glucose 110 H (74-99) mg/dL Calcium 9.7 (8.4-10.2) mg/dL Magnesium 1.6 (1.6-2.3) mg/dL Total Bilirubin 0.5 (0.2-1.3) mg/dL AST 16 (14-36) U/L ALT 11 (4-34) U/L Alkaline Phosphatase 53 (38-126) U/L Total Protein 7.0 (6.3-8.2) g/dL Albumin 4.4 (3.5-5.0) g/dL Lipase 42 (23-300) U/L Urine Color Yellow Urine Appearance Clear (Clear) Urine pH 6.5 (5.0-8.0) Ur Specific [place] 1.023 (1.001-1.035) Urine Protein Negative (Negative) Urine Glucose (UA) Negative (Negative) Urine Ketones 3+ H (Negative) Urine Blood Negative (Negative) Urine Nitrite Negative (Negative) Urine Bilirubin Negative (Negative) Urine Urobilinogen <2.0 (<2.0) mg/dL Ur Leukocyte Esterase Negative (Negative) Disposition <Bertha Holden - Last Filed: 08/28/24 11:00> Is patient prescribed a controlled substance at d/c from ED?: No Time of Disposition: 14:41 <Bennett Monterroso - Last Filed: 08/28/24 14:42> Clinical Impression: Gastroenteritis Disposition: HOME SELF-CARE Instructions (If sedation given, give patient instructions): Gastroenteritis (ED) Additional Instructions: Take Zofran as prescribed Referrals: Diana Arteaga MD [Primary Care Provider] - 1-2 days
[2024-08-28 11:55] LABS: Basophils # (A) 0.05 10*3/uL (0.00-0.10); Basophils % (A) 0.7 %; Eosinophils # (A) 0.26 10*3/uL (0.04-0.35); Eosinophils % (A) 3.5 %; HCT 41.4 % (37.2-46.3); HGB 14.5 g/dL (12.0-15.0); Lymphocytes # (A) 1.39 10*3/uL (0.90-5.00); Lymphocytes % (A) 18.6 %; MCV 85.5 fL (80.0-97.0); Monocytes # (A) 0.53 10*3/uL (0.20-1.00); Monocytes % (A) 7.1 %; Neutrophils # (A) 5.24 10*3/uL (1.80-7.70); Neutrophils % (A) 69.8 %; Platelet Count 313 10*3/uL (140-440); RBC 4.84 10*6/uL (4.10-5.20); RDW 13.1 % (11.5-14.5); WBC 7.49 10*3/uL (4.50-10.00)
[2024-08-28 11:59] LABS: ALT 11 U/L (4-34); AST 16 U/L (14-36); African American GFR (CKD) >90 (>60 ml/min/1.73 sqM); Albumin 4.4 g/dL (3.5-5.0); Alkaline Phosphatase 53 U/L (38-126); Anion Gap 12 mmol/L; Blood Urea Nitrogen 10 mg/dL (7-17); Calcium 9.7 mg/dL (8.4-10.2); Carbon Dioxide 19 mmol/L (22-30); Chloride 106 mmol/L (98-107); Glucose 110 mg/dL (74-99); Lipase 42 U/L (23-300); Magnesium 1.6 mg/dL (1.6-2.3); Non-African American GFR(CKD) >90 (>60 ml/min/1.73 sqM); Potassium 3.7 mmol/L (3.5-5.1); Sodium 137 mmol/L (137-145); Total Bilirubin 0.5 mg/dL (0.2-1.3)
--- NOTE | 2024-08-28 12:23 | US ---
EXAMINATION TYPE: US gallbladder DATE OF EXAM: 08/28/2024 COMPARISON: NONE CLINICAL INDICATION: Female, 44 years old with history of epigstric/RUQ ab pain; pain and nausea gall bladder removed years ago. TECHNIQUE: Grayscale and color Doppler imaging of the right upper quadrant was performed. FINDINGS: EXAM MEASUREMENTS: Liver Length: 13.9 cm Gallbladder Wall: Surgically absent CBD: .9 cm Right Kidney: 11 x 3.7 x 4.7 cm INTERNATIONAL MARKETING SPECIALIST NOTES: Pancreas: wnl Liver: wnl Gallbladder: Surgically absent Evidence for sonographic Mishra's sign: No CBD: wnl Right Kidney: No hydronephrosis or masses seen IMPRESSION: 1. No upper quadrant ultrasound abnormality [facility], , 08/28/2024 12:21 PM
[2024-08-28] MEDS: ONDANSETRON 4 MG/2 ML VIAL IVP STA (13:24)
[2024-08-28] MEDS: SODIUM CHLORIDE 0.9% 1,000 ML IV ONE (13:24)
[2024-08-28] MEDS: SODIUM CHLORIDE 0.9% 500 ML 500 ML IV ONE (13:25)
[2024-08-28] MEDS: DIPHENOX-ATROP 2.5-0.025 MG 1 EACH TAB PO STA (13:56)
[2024-08-28 14:21] LABS: Appearance,Urine Clear (Clear); Bilirubin,Urine Negative (Negative); Blood,Urine Negative (Negative); Color,Urine Yellow; Glucose,Urine (UA) Negative (Negative); Ketones,Urine 3+ (Negative); Leukocyte Esterase,Urine Negative (Negative); Nitrite,Urine Negative (Negative); PH, Urine 6.5 (5.0-8.0); Protein,Urine Negative (Negative); Specific Gravity,Urine 1.023 (1.001-1.035); Urobilinogen,Urine <2.0 mg/dL (<2.0)
[2024-08-28 15:06] VITALS: BP 128/70; PULSE 64; RESP 22; TEMP 97.2
[2024-08-28] MEDS: ONDANSETRON 4 MG ODT STARTER PACK 2 TAB BTL PO STA (15:06)
== END 2024-08-28 14:53 | disposition home or self-care (01) ==
LOC: EC 10:39
DX: K52.9 Noninfective gastroenteritis and colitis, unspecified (principal); Z90.49 Acquired absence of other specified parts of digestive tract; F17.290 Nicotine dependence, other tobacco product, uncomplicated
CPT/HCPCS: 36415; 80053; 83690; 83735; 85025; 81003; 76705; 99284; 96374; 96361; J2405; S0119

== ENCOUNTER 2024-10-10 14:11 | Inpatient (IN) | payer BC, OTHER ==
[2024-10-10] MEDS: NOREPINEPHRINE 8 MG in SODIUM CHLORIDE 0.9% 250 ML IV SCH (14:23)
[2024-10-10] MEDS: SODIUM CHLORIDE 0.9% 1,000 ML IV ONE ×2 (14:23→15:05)
[2024-10-10] MEDS: EPINEPHrine 10 ML SYRINGE (0.1 MG/ML) IV ONE (14:26)
--- NOTE | 2024-10-10 14:31 | XR ---
EXAMINATION TYPE: XR chest 1V portable DATE OF EXAM: 10/10/2024 2:25 PM COMPARISON: Chest radiograph dated 12/17/2023. CLINICAL INDICATION: Female, 44 years old with history of post cardiac arrest; [facility] TECHNIQUE: XR chest 1V portable Frontal view of the chest. FINDINGS: Lungs/Pleura: There is no evidence of pleural effusion, focal consolidation, or pneumothorax. Pulmonary vascularity: Unremarkable. Heart/mediastinum: Cardiomediastinal silhouette is unremarkable. Musculoskeletal: No acute osseous pathology. Other findings: None Lines/Tubes: Endotracheal tube terminates proximally 6.3 cm above the zay. Enteric tube and appropriate positio phillip with distal sidehole overlying the gastric lumen. IMPRESSION: 1. No acute focal consolidation, pleural effusion or pneumothorax. 2. Support devices as above. [facility], , 10/10/2024 2:29 PM
[2024-10-10] MEDS: NOREPINEPHRINE 32 MG in SODIUM CHLORIDE 0.9% 218 ML IV SCH (14:50)
[2024-10-10] MEDS: SODIUM BICARB 8.4% 50 ML SYR (1 MEQ/ML) IV STA ×4 (15:00→16:27)
[2024-10-10 15:08] LABS: ABG PCO2 69 mmHg (35-45); ABG PO2 83 mmHg (83-108); Allen Test Performed? Yes
[2024-10-10 15:09] LABS: Glucose,Whole Blood 372 mg/dL (70-110)
[2024-10-10 15:16] LABS: ABG PH <6.82 (7.35-7.45)
[2024-10-10 15:21] LABS: ALT 228 U/L (4-34); African American GFR (CKD) 60 (>60 ml/min/1.73 sqM); Blood Urea Nitrogen 12 mg/dL (7-17); Calcium 7.5 mg/dL (8.4-10.2); Chloride 112 mmol/L (98-107); Glucose 315 mg/dL (74-99); Non-African American GFR(CKD) 52 (>60 ml/min/1.73 sqM); Sodium 143 mmol/L (137-145)
[2024-10-10 15:23] LABS: Basophils # (A) 0.05 10*3/uL (0.00-0.10); Basophils % (A) 0.6 %; Eosinophils # (A) 0.62 10*3/uL (0.04-0.35); Eosinophils % (A) 7.7 %; HCT 36.8 % (37.2-46.3); Lymphocytes # (A) 4.23 10*3/uL (0.90-5.00); Lymphocytes % (A) 52.5 %; MCH 30.4 pg (27.0-32.0); MCHC 27.7 g/dL (32.0-37.0); Monocytes # (A) 0.38 10*3/uL (0.20-1.00); Monocytes % (A) 4.7 %; Neutrophils # (A) 2.34 10*3/uL (1.80-7.70); Neutrophils % (A) 29.2 %; Platelet Count 212 10*3/uL (140-440); RBC 3.35 10*6/uL (4.10-5.20); RDW 13.9 % (11.5-14.5); WBC 8.05 10*3/uL (4.50-10.00)
[2024-10-10] MEDS: VASOPRESSIN 60 UNIT in SODIUM CHLORIDE 0.9% 150 ML IV SCH (15:23)
[2024-10-10 15:26] LABS: HGB 10.2 g/dL (12.0-15.0)
[2024-10-10 15:27] LABS: MCV 109.9 fL (80.0-97.0)
[2024-10-10 15:28] LABS: Carbon Dioxide <5 mmol/L (22-30); Magnesium 3.0 mg/dL (1.6-2.3); Potassium 5.7 mmol/L (3.5-5.1)
[2024-10-10 15:29] LABS: AST 404 U/L (14-36); Albumin 2.8 g/dL (3.5-5.0); Alkaline Phosphatase 112 U/L (38-126); Total Protein 4.9 g/dL (6.3-8.2)
[2024-10-10] MEDS: SODIUM CHLORIDE 0.9% 1,000 ML IV SCH ×2 (15:37→16:30)
--- NOTE | 2024-10-10 15:52 | XR ---
EXAMINATION TYPE: XR chest 1V confirm line plcmt DATE OF EXAM: 10/10/2024 3:46 PM COMPARISON: Multiple prior chest radiographs, most recently dated 10/10/2017. CLINICAL INDICATION: Female, 44 years old with history of arrest; [facility] TECHNIQUE: XR chest 1V confirm line plcmt Frontal view of the chest. FINDINGS: Lungs/Pleura: Possible developing interstitial opacities. No sizable pleural effusion or pneumothorax . Pulmonary vascularity: Unremarkable. Heart/mediastinum: Cardiomediastinal silhouette is unremarkable. Musculoskeletal: No acute osseous pathology. Other findings: None Lines/Tubes: Endotracheal tube terminates approximately 4.5 cm above the zay. Right-sided central venous cathet er with distal catheter tip terminating at the cavoatrial junction. Enteric tube partially visualized coursing below left hemidiaphragm. IMPRESSION: Interval placement of right IJ central venous catheter with distal tip terminating at the cavoatrial junction. Possible developing interstitial opacities. [facility], , 10/10/2024 3:50 PM
[2024-10-10 16:11] LABS: INR 1.3 (<1.2); Prothrombin Time 13.9 sec (10.0-12.5)
[2024-10-10 16:13] LABS: Partial Thromboplastin Time 129.7 sec (22.0-30.0)
[2024-10-10] MEDS: SODIUM CHLORIDE 0.9% 1,000 ML IV STA (16:28)
[2024-10-10 16:29] LABS: Crenated RBC Present
--- NOTE | 2024-10-10 16:39 | CT ---
EXAMINATION TYPE: CT brain cspine wo con DATE OF EXAM: 10/10/2024 4:01 PM COMPARISON: None. CLINICAL INDICATION: Female, 44 years old with history of arrest; cardiac arrest TECHNIQUE: Brain: Multiple axial CT images of the brain were obtained without IV contrast. Cspine: Axial CT images from the skull base to the inferior aspect of T2 we obtained without intraven ous contrast. Coronal and sagittal reformatted images were also reviewed. . CT DLP: 1410.7 mGycm, Automated exposure control for dose reduction was used. FINDINGS: Brain: Extra-axial spaces: Effacement of the cerebral sulci and apparent increased attenuation involving the basal cisterns. Ventricular system: Slitlike appearance of the lateral ventricles and third ventricle. Cerebral parenchyma: Questionable artifact versus small subdural hematoma along the right parietal co nvexity (35/67). There is diffuse loss of velázquez-white matter differentiation concerning for developing cerebral edema Cerebellum: Unremarkable. Mass effect: No evidence of midline shift. Intracranial vasculature: unremarkable Soft tissues: Normal. Calvarium/osseous structures: No depressed skull fracture. Paranasal sinuses and mastoid air cells: Clear. Visualized orbits: Orbital contents are intact. Cervical spine: Fracture: None. Osseous structures: Unremarkable Vertebral alignment: Within normal limits. Spinal canal/Neural Foramina: No evidence of high-grade spinal canal stenosis or neural foraminal roxanna rowing. Neck soft tissues: Prevertebral soft tissues are within normal limits. Other: Emphysema and the partially visualized lung apices. Endotracheal tube and enteric tube partial ly visualized. Right IJ central venous catheter noted. IMPRESSION: 1. Loss of the velázquez-white matter differentiation and additional findings concerning for diffuse cere bral edema. 2. No acute fracture or traumatic subluxation of the cervical spine. [facility], , 10/10/2024 4:37 PM
--- NOTE | 2024-10-10 16:48 | ED ---
CPR HPI - General Chief Complaint: Cardiac Arrest/CPR Stated Complaint: Cardiac Arrest Time Seen by Provider: 10/10/24 14:11 Source: patient Mode of arrival: EMS Limitations: no limitations - History of Present Illness Initial Comments: 44-year-old female with past medical history of asthma who presents emergency department in cardiac arrest. EMS reported that the patient said she was not feeling well this morning. She went into her bedroom to lay down around 1230. Family checked on her around 1:00 and the patient was apneic and pulseless. EMS was called. Bystanders had started CPR. EMS arrived on scene at 1:10 PM and found the patient to be in asystole. CPR was started. Patient was intubated. They did not hear breath sounds on the left and therefore they performed needle decompression. They administered a total of 9 epi. They ended up getting ROSC at 1:30 pm. Then, lost pulses again and performed another round of CPR of 3 minutes. Patient arrives to our facility at 2:11 PM. She does have a pulse and is being bagged. Patient has blood coming from her ET tube. Needle decompression in the left chest wall. Family denies that she was complaining of chest pain or shortness of breath but they did state that her asthma was acting up onto the past couple days and she was using albuterol treatments. She has no cardiac history. No recent medications. No vomiting. No black or bloody stools. Recently finished her menstrual cycle. HPI is currently limited because of the patient's condition - Related Data Home Medications Medication Instructions Recorded Confirmed Albuterol Inhaler [Ventolin Hfa 2 puff INHALATION RT-Q4H PRN 10/10/24 10/10/24 Inhaler] Cetirizine HCl [Zyrtec] 10 mg PO DAILY 10/10/24 10/10/24 Escitalopram [Lexapro] 10 mg PO DAILY 10/10/24 10/10/24 Allergies Allergy/AdvReac Type Severity Reaction Status Date / Time No Known Allergies Allergy Verified 10/10/24 17:49 Review of Systems ROS Statement: Those systems with pertinent positive or pertinent negative responses have been documented in the HPI. ROS Other: All systems not noted in ROS Statement are negative. Past Medical History Past Medical History: Asthma History of Any Multi-Drug Resistant Organisms: None Reported Past Surgical History: Cholecystectomy Past Psychological History: No Psychological Hx Reported Smoking Status: Vaper Past Alcohol Use History: None Reported Past Drug Use History: Marijuana General Exam Limitations: altered mental status General appearance: other (Unresponsive) Head exam: Present: atraumatic, normocephalic Eye exam: Present: other (Fixed, dilated at 8 mm) ENT exam: Present: other (Intubated with blood coming from ET tube) Neck exam: Present: normal inspection. Absent: tenderness, meningismus, lym phadenopathy Respiratory exam: Present: decreased breath sounds, other (Patient is being bagged) Cardiovascular Exam: Present: regular rate, normal rhythm, normal heart sounds. Absent: systolic murmur, diastolic murmur, rubs, gallop, clicks GI/Abdominal exam: Present: soft Neurological exam: Present: other (Patient has no response to painful or verbal stimuli) Skin exam: Present: pallor, mottled Course Vital Signs 10/10/24 10/10/24 10/10/24 14:14 14:20 14:29 Temperature Pulse Rate 68 60 Pulse Rate [ Hat Forming Machine Feeder ] Respiratory 18 18 18 Rate Blood Pressure 51/29 39/20 O2 Sat by Pulse 100 97 Oximetry Fraction of 100 Inspired Oxygen (FIO2) 10/10/24 10/10/24 10/10/24 14:34 14:39 14:40 Temperature 98.0 F Pulse Rate 85 76 Pulse Rate [ 76 Hat Forming Machine Feeder ] Respiratory 18 18 Rate Blood Pressure 107/80 51/39 O2 Sat by Pulse 98 99 Oximetry Fraction of 100 Inspired Oxygen (FIO2) 10/10/24 10/10/24 10/10/24 14:45 14:54 15:05 Temperature Pulse Rate 68 62 77 Pulse Rate [ Hat Forming Machine Feeder ] Respiratory 18 18 18 Rate Blood Pressure 56/36 65/28 65/41 O2 Sat by Pulse 100 99 98 Oximetry Fraction of Inspired Oxygen (FIO2) 10/10/24 10/10/24 10/10/24 15:11 15:15 15:35 Temperature Pulse Rate 76 75 75 Pulse Rate [ Hat Forming Machine Feeder ] Respiratory 18 18 18 Rate Blood Pressure 61/38 58/44 63/41 O2 Sat by Pulse 98 97 97 Oximetry Fraction of Inspired Oxygen (FIO2) 10/10/24 10/10/24 10/10/24 15:45 15:50 15:55 Temperature Pulse Rate 70 72 78 Pulse Rate [ Hat Forming Machine Feeder ] Respiratory 18 18 18 Rate Blood Pressure 79/49 86/60 82/47 O2 Sat by Pulse 97 98 98 Oximetry Fraction of Inspired Oxygen (FIO2) 10/10/24 10/10/24 10/10/24 16:05 16:15 16:30 Temperature Pulse Rate 75 76 79 Pulse Rate [ Hat Forming Machine Feeder ] Respiratory 18 18 18 Rate Blood Pressure 78/40 78/41 76/44 O2 Sat by Pulse 98 98 98 Oximetry Fraction of Inspired Oxygen (FIO2) 10/10/24 10/10/24 10/10/24 16:45 17:00 17:24 Temperature Pulse Rate 78 80 81 Pulse Rate [ Hat Forming Machine Feeder ] Respiratory 18 18 18 Rate Blood Pressure 83/36 80/59 95/79 O2 Sat by Pulse 95 94 L 93 L Oximetry Fraction of Inspired Oxygen (FIO2) 10/10/24 10/10/24 10/10/24 18:00 18:23 19:00 Temperature Pulse Rate 86 85 80 Pulse Rate [ Hat Forming Machine Feeder ] Respiratory 18 18 18 Rate Blood Pressure 80/56 77/30 78/41 O2 Sat by Pulse 93 L 93 L 94 L Oximetry Fraction of Inspired Oxygen (FIO2) Medical Decision Making - Medical Decision Making Was pt. sent in by a medical professional or institution (, PA, ENERGY ECONOMIST, urgent care, hospital, or halfway...) When possible be specific @ -No Did you speak to anyone other than the patient for history (EMS, parent, family, police, friend...)? What history was obtained from this source @ -I spoke with EMS and family for history Did you review nursing and triage notes (agree or disagree)? Why? @ -I reviewed and agree with nursing and triage notes Were old charts reviewed (outside hosp., previous admission, EMS record, old EKG, old radiological studies, urgent care reports/EKG's, halfway records)? Report findings @ -No old charts were reviewed Differential Diagnosis (chest pain, altered mental status, abdominal pain women, abdominal pain men, vaginal bleeding, weakness, fever, dyspnea, syncope, headache, dizziness, GI bleed, back pain, seizure, CVA, palpatations, mental health, musculoskeletal)? @ -Cardiac arrest, respiratory arrest, pneumothorax, acute blood loss anemia EKG interpreted by me (3pts min.). @ -Yes and demonstrates sinus rhythm with rate of 75. HI interval 228. QRS 149. QTc of 448. Right bundle branch block. Mild ST depression V1 through V3. No acute ST segment elevation X-rays interpreted by me (1pt min.). @ - yes which demonstrates appropriate line placement CT interpreted by me (1pt min.). @ -Yes which demonstrates anoxic injury U/S interpreted by me (1pt. min.). @ -None done What testing was considered but not performed or refused? (CT, X-rays, U/S, labs)? Why? @ -Chest tube placement was considered however family would not like to escalate any care at this time What meds were considered but not given or refused? Why? @ -None Did you discuss the management of the patient with other professionals (professionals i.e. DrBrooks, PA, ENERGY ECONOMIST, lab, RT, psych nurse, social worker masters, quality assurance supervisor body, teacher, chief informatics officer, upper caser)? Give summary @ -Spoke with Dr. Flynn for admission to the ICU as well as Dr. Chapin Was smoking cessation discussed for >3mins.? @ -No Was critical care preformed (if so, how long)? @ -65 minutes Were there social determinants of health that impacted care today? How? (Ally elessness, low income, unemployed, alcoholism, drug addiction, transportation, low edu. Level, literacy, decrease access to med. care, long term, rehab)? @ -No Was there de-escalation of care discussed even if they declined (Discuss DNR or withdrawal of care, Hospice)? DNR status @ -Yes, family wishes no escalation of care What co-morbidities impacted this encounter? (DM, HTN, Smoking, COPD, CAD, Can cer, CVA, ARF, Chemo, Hep., AIDS, mental health diagnosis, sleep apnea, morbid obesity)? @ -Asthma Was patient admitted / discharged? Hospital course, mention meds given and route, prescriptions, significant lab abnormalities, going to OR and other pertinent info. @ -Upon arrival patient placed into trauma 1. She is placed on the ventilator, continuous pulse ox and cardiac monitoring as well as the ZOLL monitor with pads. Additional IV was established. Portable chest x-ray was performed. I did go to initiate a central line. Upon evaluating the patient's cardiac activity and peripheral pulse, it is extremely thready. 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 Compressions are started. Patient did receive 3 epi, 4 A of bicarb and 1 of calcium chloride. We do obtain ROSC. I did place a central line. Repeat chest x-ray was performed with appropriate placement of the lines. Laboratory studies are conducted. Patient does go for CT brain, C- spine, chest, abdomen and pelvis. Laboratory studies are reviewed and indicate endorgan damage. CT of the brain demonstrates diffuse anoxic injury. Patients pupils are fixed and dilated at 8 mm. I spoke with family -chance of neurologic recovery is extremely minimal. Family agrees to comfort measures. No chest tube. No more CPR. They do not want to remove the ET tube at this time as they are awaiting further family. Patient will be admitted to the ICU awaiting terminal extubation Undiagnosed new problem with uncertain prognosis? @ -yes Drug Therapy requiring intensive monitoring for toxicity (Heparin, Nitro, Insulin, Cardizem)? @ -No Were any procedures done? @ -No Diagnosis/symptom? @ -Acute cardiac arrest, left sided pneumothorax with possible needle decompression, metabolic acidosis, lactic acidosis, transaminitis Acute, or Chronic, or Acute on Chronic? @ -Acute Uncomplicated (without systemic symptoms) or Complicated (systemic symptoms)? @ -Complicated Side effects of treatment? @ -No Exacerbation, Progression, or Severe Exacerbation? @ -No Poses a threat to life or bodily function? How? (Chest pain, USA, NM, pneumonia, PE, COPD, DKA, ARF, appy, cholecystitis, CVA, Diverticulitis, Homicidal, Suicidal, threat to staff... and all critical care pts) @ -Yes this patient is going to succumb to her injuries - Lab Data Result diagrams: 10/10/24 14:38 10/10/24 14:38 Lab Results 10/10/24 10/10/24 10/10/24 Range/Units 14:38 14:38 14:38 WBC 8.05 (4.50-10.00) 10*3/uL RBC 3.35 L (4.10-5.20) 10*6/uL Hgb 10.2 L D (12.0-15.0) g/dL Hct 36.8 L (37.2-46.3) % MCV 109.9 H D (80.0-97.0) fL MCH 30.4 (27.0-32.0) pg MCHC 27.7 L (32.0-37.0) g/dL Plt Count 212 (140-440) 10*3/uL MPV 11.4 (9.5-12.2) fL Immature Gran % (Auto) 5.3 % Neutrophils % 29.2 % Lymphocytes % 52.5 % Monocytes % 4.7 % Eosinophils % 7.7 % Basophils % 0.6 % Immature Gran # 0.43 H (0.00-0.04) 10*3/uL Neutrophils # 2.34 (1.80-7.70) 10*3/uL Lymphocytes # 4.23 (0.90-5.00) 10*3/uL Monocytes # 0.38 (0.20-1.00) 10*3/uL Eosinophils # 0.62 H (0.04-0.35) 10*3/uL Basophils # 0.05 (0.00-0.10) 10*3/uL Differential Comment Manual Slide Review Performed Crenated Cell Present PT (10.0-12.5) sec INR (<1.2) APTT (22.0-30.0) sec D-Dimer (<0.60) mg/L FEU Sample Site ABG pH (7.35-7.45) ABG pCO2 (35-45) mmHg ABG pO2 (83-108) mmHg ABG O2 Saturation (94-97) % Matthew Test Hemoglobin (11.4-16.0) gm/dL FiO2 % Sodium 143 (137-145) mmol/L Potassium 5.7 H (3.5-5.1) mmol/L Chloride 112 H (98-107) mmol/L Carbon Dioxide <5 L* (22-30) mmol/L Anion Gap mmol/L BUN 12 (7-17) mg/dL Creatinine 1.25 H (0.52-1.04) mg/dL Est GFR (CKD-EPI)AfAm 60 (>60 ml/min/1.73 sqM) Est GFR (CKD-EPI)NonAf 52 (>60 ml/min/1.73 sqM) Glucose 315 H (74-99) mg/dL POC Glucose (mg/dL) (70-110) mg/dL POC Glu Gas Systems Worker ID Lactic Ac Sepsis Rflx Plasma Lactic Acid Dayne (0.7-2.0) mmol/L Calcium 7.5 L (8.4-10.2) mg/dL Magnesium 3.0 H (1.6-2.3) mg/dL Total Bilirubin 0.8 (0.2-1.3) mg/dL AST 404 H (14-36) U/L ALT 228 H (4-34) U/L Alkaline Phosphatase 112 (38-126) U/L Troponin I 0.601 H* (0.000-0.034) ng/mL Total Protein 4.9 L (6.3-8.2) g/dL Albumin 2.8 L (3.5-5.0) g/dL Serum Alcohol mg/dL Blood Type Blood Type Recheck Bld Type Recheck Status Antibody Screen Spec Expiration Date 10/10/24 10/10/24 10/10/24 Range/Units 14:38 15:07 15:13 WBC (4.50-10.00) 10*3/uL RBC (4.10-5.20) 10*6/uL Hgb (12.0-15.0) g/dL Hct (37.2-46.3) % MCV (80.0-97.0) fL MCH (27.0-32.0) pg MCHC (32.0-37.0) g/dL Plt Count (140-440) 10*3/uL MPV (9.5-12.2) fL Immature Gran % (Auto) % Neutrophils % % Lymphocytes % % Monocytes % % Eosinophils % % Basophils % % Immature Gran # (0.00-0.04) 10*3/uL Neutrophils # (1.80-7.70) 10*3/uL Lymphocytes # (0.90-5.00) 10*3/uL Monocytes # (0.20-1.00) 10*3/uL Eosinophils # (0.04-0.35) 10*3/uL Basophils # (0.00-0.10) 10*3/uL Differential Comment Manual Slide Review Crenated Cell PT (10.0-12.5) sec INR (<1.2) APTT (22.0-30.0) sec D-Dimer (<0.60) mg/L FEU Sample Site rbrach ABG pH <6.82 L* (7.35-7.45) ABG pCO2 69 H (35-45) mmHg ABG pO2 83 (83-108) mmHg ABG O2 Saturation 77.3 L (94-97) % Matthew Test Yes Hemoglobin 6.6 L* (11.4-16.0) gm/dL FiO2 100 % Sodium (137-145) mmol/L Potassium (3.5-5.1) mmol/L Chloride (98-107) mmol/L Carbon Dioxide (22-30) mmol/L Anion Gap mmol/L BUN (7-17) mg/dL Creatinine (0.52-1.04) mg/dL Est GFR (CKD-EPI)AfAm (>60 ml/min/1.73 sqM) Est GFR (CKD-EPI)NonAf (>60 ml/min/1.73 sqM) Glucose (74-99) mg/dL POC Glucose (mg/dL) 372 H (70-110) mg/dL POC Glu Gas Systems Worker ID Rodriguez Yandy Lactic Ac Sepsis Rflx Plasma Lactic Acid Dayne (0.7-2.0) mmol/L Calcium (8.4-10.2) mg/dL Magnesium (1.6-2.3) mg/dL Total Bilirubin (0.2-1.3) mg/dL AST (14-36) U/L ALT (4-34) U/L Alkaline Phosphatase (38-126) U/L Troponin I (0.000-0.034) ng/mL Total Protein (6.3-8.2) g/dL Albumin (3.5-5.0) g/dL Serum Alcohol <10 mg/dL Blood Type Blood Type Recheck Bld Type Recheck Status Antibody Screen Spec Expiration Date 10/10/24 10/10/24 10/10/24 Range/Units 15:13 15:19 15:34 WBC (4.50-10.00) 10*3/uL RBC (4.10-5.20) 10*6/uL Hgb (12.0-15.0) g/dL Hct (37.2-46.3) % MCV (80.0-97.0) fL MCH (27.0-32.0) pg MCHC (32.0-37.0) g/dL Plt Count (140-440) 10*3/uL MPV (9.5-12.2) fL Immature Gran % (Auto) % Neutrophils % % Lymphocytes % % Monocytes % % Eosinophils % % Basophils % % Immature Gran # (0.00-0.04) 10*3/uL Neutrophils # (1.80-7.70) 10*3/uL Lymphocytes # (0.90-5.00) 10*3/uL Monocytes # (0.20-1.00) 10*3/uL Eosinophils # (0.04-0.35) 10*3/uL Basophils # (0.00-0.10) 10*3/uL Differential Comment Manual Slide Review Crenated Cell PT 13.9 H (10.0-12.5) sec INR 1.3 H (<1.2) APTT 129.7 H* (22.0-30.0) sec D-Dimer >34.10 H (<0.60) mg/L FEU Sample Site ABG pH (7.35-7.45) ABG pCO2 (35-45) mmHg ABG pO2 (83-108) mmHg ABG O2 Saturation (94-97) % Matthew Test Hemoglobin (11.4-16.0) gm/dL FiO2 % Sodium (137-145) mmol/L Potassium (3.5-5.1) mmol/L Chloride (98-107) mmol/L Carbon Dioxide (22-30) mmol/L Anion Gap mmol/L BUN (7-17) mg/dL Creatinine (0.52-1.04) mg/dL Est GFR (CKD-EPI)AfAm (>60 ml/min/1.73 sqM) Est GFR (CKD-EPI)NonAf (>60 ml/min/1.73 sqM) Glucose (74-99) mg/dL POC Glucose (mg/dL) (70-110) mg/dL POC Glu Gas Systems Worker ID Lactic Ac Sepsis Rflx Y Plasma Lactic Acid Dayne >24.0 H* (0.7-2.0) mmol/L Calcium (8.4-10.2) mg/dL Magnesium (1.6-2.3) mg/dL Total Bilirubin (0.2-1.3) mg/dL AST (14-36) U/L ALT (4-34) U/L Alkaline Phosphatase (38-126) U/L Troponin I (0.000-0.034) ng/mL Total Protein (6.3-8.2) g/dL Albumin (3.5-5.0) g/dL Serum Alcohol mg/dL Blood Type Blood Type Recheck Bld Type Recheck Status Antibody Screen Spec Expiration Date 10/10/24 Range/Units 16:00 WBC (4.50-10.00) 10*3/uL RBC (4.10-5.20) 10*6/uL Hgb (12.0-15.0) g/dL Hct (37.2-46.3) % MCV (80.0-97.0) fL MCH (27.0-32.0) pg MCHC (32.0-37.0) g/dL Plt Count (140-440) 10*3/uL MPV (9.5-12.2) fL Immature Gran % (Auto) % Neutrophils % % Lymphocytes % % Monocytes % % Eosinophils % % Basophils % % Immature Gran # (0.00-0.04) 10*3/uL Neutrophils # (1.80-7.70) 10*3/uL Lymphocytes # (0.90-5.00) 10*3/uL Monocytes # (0.20-1.00) 10*3/uL Eosinophils # (0.04-0.35) 10*3/uL Basophils # (0.00-0.10) 10*3/uL Differential Comment Manual Slide Review Crenated Cell PT (10.0-12.5) sec INR (<1.2) APTT (22.0-30.0) sec D-Dimer (<0.60) mg/L FEU Sample Site ABG pH (7.35-7.45) ABG pCO2 (35-45) mmHg ABG pO2 (83-108) mmHg ABG O2 Saturation (94-97) % Matthew Test Hemoglobin (11.4-16.0) gm/dL FiO2 % Sodium (137-145) mmol/L Potassium (3.5-5.1) mmol/L Chloride (98-107) mmol/L Carbon Dioxide (22-30) mmol/L Anion Gap mmol/L BUN (7-17) mg/dL Creatinine (0.52-1.04) mg/dL Est GFR (CKD-EPI)AfAm (>60 ml/min/1.73 sqM) Est GFR (CKD-EPI)NonAf (>60 ml/min/1.73 sqM) Glucose (74-99) mg/dL POC Glucose (mg/dL) (70-110) mg/dL POC Glu Gas Systems Worker ID Lactic Ac Sepsis Rflx Plasma Lactic Acid Dayne (0.7-2.0) mmol/L Calcium (8.4-10.2) mg/dL Magnesium (1.6-2.3) mg/dL Total Bilirubin (0.2-1.3) mg/dL AST (14-36) U/L ALT (4-34) U/L Alkaline Phosphatase (38-126) U/L Troponin I (0.000-0.034) ng/mL Total Protein (6.3-8.2) g/dL Albumin (3.5-5.0) g/dL Serum Alcohol mg/dL Blood Type O Positive Blood Type Recheck O Pos Bld Type Recheck Status No Antibody Screen NEGATIVE Spec Expiration Date 10/13/20242299 Disposition Clinical Impression: Cardiac arrest Disposition: ADMITTED IP TO THIS [facility] Condition: Critical Is patient prescribed a controlled substance at d/c from ED?: No Time of Disposition: 17:30 Decision to Admit Reason: Admit from EC Decision Date: 10/10/24 Decision Time: 17:30
[2024-10-10] MEDS: CALCIUM GLUCONATE IN NACL 1 GM in SALINE 1 100ML.BAG IVPB ONE (16:52)
[2024-10-10] MEDS: DEXTROSE 5% IN WATER 1,000 ML with SODIUM BICARB (1 MEQ/ML) 150 ML IV SCH (16:58)
--- NOTE | 2024-10-10 17:03 | CT ---
EXAMINATION TYPE: CT ChestAbdPelvis w con DATE OF EXAM: 10/10/2024 4:04 PM COMPARISON: None. CLINICAL INDICATION: Female, 44 years old with history of arrest; PHH, cardiac arrest Technique: CT ChestAbdPelvis w con; Multiple axial images were obtained. Two-dimensional coronal and sagittal reconstructions were obtained. Contrast used:80 mL of Isovue 300 with IV Contrast, (None if empty) Oral contrast used: without Oral Contrast CT DLP: 1345.1 mGycm, Automated exposure control for dose reduction was used. Findings: CHEST: LUNGS/ PLEURA: Left apical pneumothorax measuring up to 2.3 cm in greatest diameter from the pleural surface. There is emphysema. Endotracheal tube terminating in the mid thoracic trachea. Patchy opacit ies in the left upper lobe which could reflect developing pneumonia, possibly aspiration related. Tra ce bilateral pleural effusions. No definite right-sided pneumothorax. Left chest wall subcutaneous em physema. HEART: Size within normal limits. MEDIASTINUM: No gross evidence of adenopathy. VASCULATURE: No aortic aneurysm. MUSCULOSKELETAL: No acute osseous abnormalities. SOFT TISSUES/LYMPH NODES: Unremarkable. LOWER NECK: No significant findings. ABDOMEN: ABDOMEN LIVER: Unremarkable GALLBLADDER AND BILE DUCTS: The gallbladder is surgically absent. PANCREAS: Unremarkable. SPLEEN: Unremarkable. ADRENAL GLANDS: Unremarkable. KIDNEYS AND URETERS: Heterogeneous enhancement of the bilateral kidneys with numerous hypoattenuating wedge-shaped regions in the right kidney suspicious for developing renal infarctions (85/148). PELVIS BLADDER: Nondistended with Ross catheter in place. REPRODUCTIVE: Unremarkable. ABDOMEN & PELVIS STOMACH AND BOWEL: Enteric tube within the gastric lumen. No evidence of bowel obstruction. PERITONEUM/RETROPERITONEUM: No evidence of pneumoperitoneum or free fluid. VASCULATURE: No evidence of aortic aneurysm. MUSCULOSKELETAL: No acute osseous abnormalities LYMPH NODES: No gross evidence for lymphadenopathy. SOFT TISSUE/ABDOMINAL WALL: Unremarkable IMPRESSION: 1. Small left apical pneumothorax. 2. Patchy groundglass and consolidative opacities most pronounced in the left lung suspicious for de veloping pneumonia, possibly aspiration related given stated clinical history. 3. Trace bilateral pleural effusions. 4. Simultaneous emphysema throughout the left chest wall. 5. Findings concerning for developing renal infarctions with overall heterogeneous enhancement patte rn. *Critical findings were discussed with Dr. Gonsalez at 4:55 PM on 10/10/2024. [facility]: [id number], 10/10/2024 5:00 PM
[2024-10-10 19:31] LABS: Glucose,Whole Blood 359 mg/dL (70-110)
[2024-10-10 20:11] VITALS: TEMP 91
--- NOTE | 2024-10-10 21:21 | P.CON ---
Consult Note - . Consult date: 10/10/24 Assessment/Plan:: This is a 44-year-old female who presented to the ER earlier today with cardiac arrest. Patient has no previous significant medical history except for mild intermittent asthma patient was not feeling well this morning, went to bed to [facility] around 12:30 PM, family checked on her around 1 PM, and she was apneic and pulseless. EMS was called, bystanders started CPR. EMS arrived to the scene at 1 PM and found the patient in asystole. CPR was started patient was intubated by EMS, EMS suspected left-sided pneumothorax because she had no breaths on the left side, underwent needle decompression and CPR Going on she received a total of 9 epinephrine cycles. Return of spontaneous circulation was noted at 1:50 PM then the patient lost pulse again, and she received another round of CPR for 3 minutes. Patient was brought into the ER around 2:11 PM she did have a pulse and she was being bagged. Patient was noted to have blood in the endotracheal tube. Needle decompression in the left chest wall was removed patient was noted to have small left-sided pneumothorax. The ER physician discussed with the family the need to place a left-sided chest tube by that the family was quite well aware that her prognosis is extremely poor and guarded, and declined having a chest tube placed. The pneumothorax was small but nonetheless the patient was on mechanical ventilation. The ER physician discussed this patient with me over the phone, and I fully agreed with the plans of comfort care because of the prolonged downtime, and I was told that the patient had fully dilated pupils unresponsive, and most likely she has sustained a significant anoxic brain injury. Patient required pressors she was sent to the ICU with the plan for the family to proceed with comfort care possibly in the next few hours. I was in the ICU at the time of the patient arrived, discussed with briefly her condition with family at bedside, and the plan is to proceed with comfort care whenever the family decides. She is already DNR CODE STATUS, and again the family declined any further procedures. Looking at the overall picture, I agree with the family decision regarding DNR CODE STATUS and possibly comfort care.
[2024-10-10 21:36] VITALS: BP 87/68
[2024-10-10 21:40] VITALS: PULSE 0; RESP 0
--- NOTE | 2024-10-14 06:36 | CDI ---
Documentation Clarification Form Date: 10/14/24 From: Anny Tee Admit Date: 10/10/2024 05:36:00 PM Patient Name: Amparo Meneses Visit Number: [id number] Discharge Date: 10/10/2024 10:44:00 PM ATTENTION: The Clinical Documentation Specialists (CDI) and [facility] Coding Staff appreciate your assistance in clarifying documentation. Please respond to the clarification below the line at the bottom and electronically sign. The CDI & [facility] Coding staff will review the response and follow-up if needed. Please note: Queries are made part of the Legal Health Record. If you have any questions, please contact the author of this message via ITS. Doctor/Provider: Veronica Chapin, Your patient has cerebral edema is documented in Brain CT on 10/10. Based on this information and the findings below, is there an additional diagnosis that is clinically appropriate for this patient? Patient history/risk factors: mild intermittent asthma Clinical Indicators: Patient found down in her bed at home. CPR administered at home and by EMS. EMS performed intubation. CT/MRI: Loss ofthe velázquez-white matter differentiation and additional findings concerning for diffusecerebral edema. Treatment: Patient was placed on mechanical ventilation, NG, central placement and vasopressors. Admitted to ICU. Is there an additional diagnosis that is clinically appropriate for this patient? [ ] Cerebral edema [ x ] Vasogenic Cerebral edema [ ] No additional diagnosis/not clinically significant [ ] Other cerebral edema, please specify type [ ] Other, please specify [ ] Unable to determine MTDD
--- NOTE | 2024-10-14 06:53 | CDI ---
Documentation Clarification Form Date: 10/14/24 From: Anny Tee Admit Date: 10/10/2024 05:36:00 PM Patient Name: Amparo Meneses Visit Number: [id number] Discharge Date: 10/10/2024 10:44:00 PM ATTENTION: The Clinical Documentation Specialists (CDI) and [facility] Coding Staff appreciate your assistance in clarifying documentation. Please respond to the clarification below the line at the bottom and electronically sign. The CDI & [facility] Coding staff will review the response and follow-up if needed. Please note: Queries are made part of the Legal Health Record. If you have any questions, please contact the author of this message via ITS. Doctor/Provider: Veronica Chapin, Your patient has troponin level of: 0.601 ON 10/10. Please clarify if there is an additional diagnosis and/or clinical significance related to this value. Patient history/risk factors: mild intermittent asthma Clinical indicators: Patient found down in her bed at home. CPR administered at home and by EMS. EMS performed intubation. Tropnoin I: 0.601 EKG: Sinus rhythm with rate of 75.GA interval 228. DCI853. QTc of 448. Right bundle branch block. Left posterior fasicular block ST Depression. consider subnedocardial injury. Treatment: Patient was placed on mechanical ventilation, NG, central placement and vasopressors. Admitted to ICU. Is there an additional diagnosis and/or clinical significance related to the above lab result/information: [ ] NSTEMI type 1 [ ] STEMI type 1 [ ] Type 2 DE due to (specify cause ____) [ ] Non-ischemic with acute myocardial injury [ ] No additional diagnosis/Not clinically significant [ ] Other, please specify [ x ] Unable to determine Reference: [employer] Fourth [place] Definition of Myocardial Infarction Elevated Cardiac Troponin >99th percentile with Troponin rise and/or fall With Acute ischemia o Acute Myocardial Infarction ? Atherosclerosis thrombosis Type I DE ? Oxygen supply and demand imbalance Type II DE (Please indicate etiology) Without acute ischemia o Acute Myocardial Injury MTDD
--- NOTE | 2024-10-16 16:02 | CDI ---
Documentation Clarification Form Date: 10/16/2024 03:48:04 PM From: Vanessa Lin RN, CCDS Email: [email or web address] Admit Date: 10/10/2024 05:36:00 PM Patient Name: Amparo Meneses Visit Number: [id number] Discharge Date: 10/10/2024 10:44:00 PM ATTENTION: The Clinical Documentation Specialists (CDI) and [facility] Coding Staff appreciate your assistance in clarifying documentation. Please respond to the clarification below the line at the bottom and electronically sign. The CDI & [facility] Coding staff will review the response and follow-up if needed. Please note: Queries are made part of the Legal Health Record. If you have any questions, please contact the author of this message via ITS. Doctor Margarita Flynn The patient had cardiac arrest with ROSC and required mechanical ventilation. Based on this information and the findings below, is there an additional diagnosis that is clinically appropriate for this patient? Patient history/risk factors: 44 yo patient has mild intermittent asthma with no other medical history. Went into cardiac arrest at home. Presented to ER with a pulse. Admitted with cardiac arrest and transferred to ICU. Clinical Indicators: 10/10 Pulmonary: "Patient was brought into the ER around 2:11 PM, she did have a pulse and she was being bagged. Patient was noted to have blood in the endotracheal tube. The pneumothorax was small but nonetheless the patient was on mechanical ventilation. I was told that the patient had fully dilated pupils unresponsive, and most likely she has sustained a significant anoxic brain injury. Patient required pressors, she was sent to the ICU with the plan for the family to proceed with comfort care possibly in the next few hours." Treatment: Mechanical ventilation 10/10 Is there an additional diagnosis that is clinically appropriate for this patient? [ ] Acute hypoxic respiratory failure [ ] No additional diagnosis/Not clinically significant [ ] Unable to determine [ ] Other, please specify MTDD
--- NOTE | 2024-10-16 16:26 | CDI ---
Documentation Clarification Form Date: 10/16/2024 04:15:53 PM From: Vanessa Lin RN, CCDS Email: [email or web address] Admit Date: 10/10/2024 05:36:00 PM Patient Name: Amparo Meneses Visit Number: [id number] Discharge Date: 10/10/2024 10:44:00 PM ATTENTION: The Clinical Documentation Specialists (CDI) and [facility] Coding Staff appreciate your assistance in clarifying documentation. Please respond to the clarification below the line at the bottom and electronically sign. The CDI & [facility] Coding staff will review the response and follow-up if needed. Please note: Queries are made part of the Legal Health Record. If you have any questions, please contact the author of this message via ITS. Doctor Margarita Flynn The patient had cardiac with ROSC and required mechanical ventilation and vasopressors. Based on this information and the findings below, is there an additional diagnosis that is clinically appropriate for this patient? Patient history/risk factors: 44 yo patient has mild intermittent asthma with no other medical history. Went into cardiac arrest at home. Presented to ER with a pulse and was bagged. Admitted with cardiac arrest. Clinical Indicators: 10/10 BP: 51/29-107/80-61/38-83/36-66/37-87/68 10/10 MAP: 04-18-77-54-43-76 10/10 Pulmonary: "Patient was brought into the ER around 2:11 PM, she did have a pulse and she was being bagged. Patient was noted to have blood in the endotracheal tube. The pneumothorax was small but nonetheless the patient was on mechanical ventilation. I was told that the patient had fully dilated pupils unresponsive, and most likely she has sustained a significant anoxic brain injury. Patient required pressors, she was sent to the ICU with the plan for the family to proceed with comfort care possibly in the next few hours." Treatment: Mechanical ventilation 10/10; IV Norepinephrine titrated 10/10; IV Vasopressin titrated 10/10 Is there an additional diagnosis that is clinically appropriate for this patient? [ ] Shock [ ] No additional diagnosis/Not clinically significant [ ] Unable to determine [ ] Other, please specify MTDD
== END 2024-10-10 22:44 | disposition expired | DRG 296 ==
LOC: EC 14:11 → 2SICU 17:36
PROVIDERS: ADMIT Internal Medicine; ATTEND Internal Medicine
PROC: 5A1935Z Respiratory Ventilation, Less than 24 Consecutive Hours (ICD-10-PCS; principal; 2024-10-10)
PROC: 0D9670Z Drainage of Stomach with Drainage Device, Via Natural or Artificial Opening (ICD-10-PCS; principal; 2024-10-10)
PROC: 02HV33Z Insertion of Infusion Device into Superior Vena Cava, Percutaneous Approach (ICD-10-PCS; 2024-10-10)
PROC: 3E043XZ Introduction of Vasopressor into Central Vein, Percutaneous Approach (ICD-10-PCS; 2024-10-10)
DX: I46.9 Cardiac arrest, cause unspecified (principal); G93.6 Cerebral edema; G93.1 Anoxic brain damage, not elsewhere classified; Z66 Do not resuscitate; Z51.5 Encounter for palliative care; J93.9 Pneumothorax, unspecified; J45.20 Mild intermittent asthma, uncomplicated; R79.89 Other specified abnormal findings of blood chemistry; R40.2412 Glasgow coma scale score 13-15, at arrival to emergency department; H57.04 Mydriasis; Z79.899 Other long term (current) drug therapy
CPT/HCPCS: 36415; 36600; 70450; 71045; 71260; 72125; 74177; 80053; 80320; 82805; 83605; 83735; 84484; 85025; 85379; 85610; 85730; 86850; 86900; 86901; 92950; 93005; 94002; 96365; 96366; 96368; 96375; 99285